=== PATIENT | male | born 1995 | race Two or more races ===

== ENCOUNTER 2017-02-27 16:32 | Emergency (ER) | payer SELFPAY ==
[~2017-02-27] VITALS: Ht 180.3 cm; Wt 10.8 kg
[2017-02-27 17:33] VITALS: BP 128/78
== END 2017-02-27 17:56 | disposition home or self-care (01) ==
LOC: ER 16:32
DX: S40.011A Contusion of right shoulder, initial encounter (principal); W22.8XXA Striking against or struck by other objects, initial encounter; Y93.89 Activity, other specified; Y99.8 Other external cause status; Y92.89 Other specified places as the place of occurrence of the external cause
CPT/HCPCS: 73030

== ENCOUNTER 2018-09-04 04:18 | Emergency (ER) | payer BC ==
[~2018-09-04] VITALS: Ht 182.9 cm; Wt 154.2 kg
[2018-09-04] MEDS ORDERED: cefTRIAXone SOD 1,000 MG VL IM ONE (07:15)
[2018-09-04] MEDS ORDERED: methylPREDNISolone SOD SUCC 125 MG/2 ML VL IM ONE (07:15)
[2018-09-04 07:22] VITALS: BP 147/90
== END 2018-09-04 07:56 | disposition home or self-care (01) ==
LOC: ER 04:18
DX: J03.90 Acute tonsillitis, unspecified (principal)
CPT/HCPCS: 96372; 99283; J0696; J2930

== ENCOUNTER 2023-09-12 10:30 | Emergency (ER) | payer BC, MEDICAID ==
[~2023-09-12] VITALS: Ht 177.8 cm; Wt 190.0 kg
[2023-09-12] MEDS: cloNIDine HCL 0.1 MG TAB PO ONE (10:56)
[2023-09-12 13:34] LABS: Basophils # (auto) 0 10 ^3/uL (0-0.2); Basophils % (auto) 0.6 % (0.0-2.0); Eosinophils # (auto) 0 10 ^3/uL (0-0.8); Eosinophils % (auto) 0.1 % (0.0-7.0); Hematocrit 46.7 % (41.0-53.0); Hemoglobin 16.2 g/dL (13.5-17.5); Lymphocytes # (auto) 1.9 10 ^3/uL (0.4-5.4); Lymphocytes % (auto) 33.9 % (10.0-50.0); Mean Corpuscular Hemoglobin 31.7 pg (28.0-32.0); Mean Corpuscular Hgb Conc. 34.8 g/dL (32.0-36.0); Mean Corpuscular Volume 91.2 fL (80.0-100.0); Monocytes # (auto) 0.5 10 ^3/uL (0-1.3); Monocytes % (auto) 8.4 % (0.0-12.0); Neutrophils # (auto) 3.2 10 ^3/uL (1.6-8.6); Nucleated Red Blood Cells % 0.1 %; Red Blood Cells 5.12 10^6/uL (4.5-5.90); Red Cell Distribution Width 12.9 % (11.8-14.3); White Blood Cell 5.5 10^3/uL (4.4-10.8)
[2023-09-12 13:54] LABS: Alanine Aminotransferase 278 U/L (7-40); Albumin 4.6 g/dL (3.2-4.8); Alkaline Phosphatase 116 U/L (46-116); Anion Gap 5 (5-15); Aspartate Aminotransferase 114 U/L (13-40); Bilirubin, Total 0.6 mg/dL (0.2-1.0); Calcium 9.4 mg/dL (8.5-10.1); Carbon Dioxide 24 mmol/L (20-30); Chloride 111 mmol/L (98-107); Glucose 133 mg/dL (74-106); Potassium 3.9 mmol/L (3.5-5.1); Sodium 140 mmol/L (136-145); Total Protein 7.4 g/dL (5.7-8.2)
[2023-09-12 13:59] LABS: BUN/Creatinine Ratio 9.3 (10.0-20.0); Blood Urea Nitrogen < 5 mg/dL (9-23)
[2023-09-12] MEDS ORDERED: ACET500T58 PO (14:13)
[2023-09-12 14:38] VITALS: BP 156/87; PULSE 89; RESP 17; TEMP 98.9; O2SAT 97
== END 2023-09-12 14:40 | disposition home or self-care (01) ==
LOC: ER 10:30
DX: M94.0 Chondrocostal junction syndrome [Tietze] (principal); E11.9 Type 2 diabetes mellitus without complications; F32.9 Major depressive disorder, single episode, unspecified; E78.5 Hyperlipidemia, unspecified
CPT/HCPCS: 36415; 71046; 80053; 83880; 84484; 85025; 85379; 93005

== ENCOUNTER 2023-10-31 18:08 | Emergency (ER) | payer MEDICAID ==
[~2023-10-31] VITALS: Ht 180.3 cm; Wt 186.0 kg
[~2023-10-31 18:08] MED LIST: ACET500T58 PO
[2023-10-31 18:57] VITALS: PULSE 101; RESP 20; O2SAT 96
[2023-10-31 19:30] VITALS: PULSE 58; RESP 20; O2SAT 98
[2023-10-31 20:00] VITALS: TEMP 98.5
[2023-10-31] MEDS: TETANUS-DIPTH-ACEL PERTUSSIS 0.5ML SYR Tdap IM ONE (20:54)
[2023-10-31] MEDS ORDERED: LIDOCAINE 1% HCL (LOCAL ANESTH.) INJ 20ML MDV ID ONE (21:45)
[2023-10-31] MEDS ORDERED: IBU600T PO (22:18)
[2023-10-31 23:58] VITALS: BP 116/62; PULSE 92; RESP 15; O2SAT 96
== END 2023-11-01 | disposition home or self-care (01) ==
LOC: ER 18:08 → EDBD 18:08 → ER 11-01
DX: S01.112A Laceration without foreign body of left eyelid and periocular area, initial encounter (principal); M54.9 Dorsalgia, unspecified; R51.9 Headache, unspecified; E11.9 Type 2 diabetes mellitus without complications; E78.5 Hyperlipidemia, unspecified; F32.9 Major depressive disorder, single episode, unspecified; Z79.899 Other long term (current) drug therapy; Y04.2XXA Assault by strike against or bumped into by another person, initial encounter; Y93.89 Activity, other specified; Y92.89 Other specified places as the place of occurrence of the external cause; Y99.8 Other external cause status
CPT/HCPCS: 12014; 70450; 70486; 72125; 90471; 90715; 99152; J2001

== ENCOUNTER 2025-02-01 00:48 | Inpatient (IN) | payer MEDICAID ==
[~2025-02-01] VITALS: Ht 177.8 cm; Wt 181.6 kg
[~2025-02-01 00:48] MED LIST changes: +IBU600T PO
--- NOTE | 2025-02-01 01:24 | ED.PDOC ---
HPI (NEURO) HPI Comments SOFIA: HPI: Poor Historian. 29-YEAR-OLD MALE PRESENTS TO EMERGENCY DEPARTMENT FOR EVALUATION OF TWO WEEK HISTORY OF PROGRESSIVELY GETTING WORSE bilateral lower extremity numbness tingling sensation. He describes it as feeling that he is wearing socks/stockings. No motor deficits or weakness. He is ambulatory in the ER. He drove himself to the ER. Denies any saddle anesthesia. Denies any acute back pain. Denies any fall or trauma or injury. Denies respiratory symptoms. Denies any other acute symptoms. Patient has chronic diarrhea he says that is not new due to use of Ozempic. Contrary to what is stated in triage notes, patient denies any urinary incontinence but he has urgency. Denies any bowel rectal dysfunction. Past Medical History: Diabetes, hypertension, dyslipidemia, anxiety Past Surgical History: Denies REVIEW OF SYSTEMS: CONSTITUTIONAL: Denies acute: fever, diaphoresis, chills, generalized weakness. HEAD: Denies acute: headache, photophobia Eyes: Denies acute: Double vision, vision loss, eye pain, eye discharge. EARS: Denies acute: tinnitus, hearing loss, ear discharge, ear pain, THROAT: Denies acute: sore throat, swelling, difficulty swallowing , pain with s wallowing, change in voice. NECK: Denies acute: neck pain, neck swelling, stiff neck. HEART: Denies acute : chest pain, palpitations, LUNGS: Denies acute: SOB, wheezing, cough, hemoptysis ABDOMEN: Denies acute: abdominal pain, Nausea, Vomiting, diarrhea, melena , hematemesis, hematochezia SKIN: Denies acute: rash, redness, lesions, itchiness. EXTREMITIES: Denies acute: calf pain, weakness, denies pain in extremity. Denies acute: Low back pain. Neuro: Denies acute: focal neurological deficit, motor or sensory focal neurological deficit, tremors, seizure like activity, confusion, dizziness, change in mental status, loss of bowel or bladder function, cauda equina like symptoms. : Denies acute: dysuria, hematuria, flank pain, increase in urinary frequency. PSYCH: Denies acute: hallucination, suicidal ideation, homicidal ideation. PHYSICAL EXAM: General: -----NO--acute distress, awake and alert. Head: normocephalic, atraumatic. No raccoon's eyes, no cassidy sign. Neck: supple, trachea is midline, no swelling. Throat: Normal phonation. Eyes:, no erythema, no purulent discharge, no proptosis, no icterus. Heart: regular rate, regular rhythm, no significant murmur appreciated. Lungs: no apparent respiratory distress, Able to speak in full sentences. No wheezing, no rhonchi, no crackles. No stridors Clear to auscultation bilaterally. Abdomen: non tender to palpation, non distended, soft, no guarding, no rebound, + bowel sounds. MORBIDLY OBESE Neuro: Awake, Alert, oriented to name, self, situation, follows commands GCS=15. Speech is normal. Skin: no petechia, no purpura, no cyanosis, non-pale, not jaundice. Lower extremities: --no - Pitting edema no deformity, no focal swelling, no calf TTP. ABLE TO RAISE BILATERAL LOWER EXTREMITY AGAINST GRAVITY AND HOLD IT. Makes eye contact. moves all four extremities. Face: no apparent facial droop. Ambulating in the ED independently. ED COURSE: DISCLAIMER: This medical document was created using an electronic medical record system with voice recognition software and computerized dictation system. Although this document has been carefully reviewed, there might still be some phonetic and typographical errors. Occasional wrong-word or "sound-alike" substitutions may have occurred due to the inherent limitations of voice recognition software. These areas are purely typographical due to imperfections of the software programs and do not reflect any compromise in the patient's medical care. Please read the chart carefully and recognize, using context, where these substitutions have occurred. Chief Complaint: General Weakness Time Seen by MD: 01:24 Primary Care Provider: JOANNA Reviewed Notes: Nurses Notes, Allergies Information Source: Patient Mode of Arrival: Ambulatory Past Medical History PAST MEDICAL HISTORY: Depression, DM, High Lipids Surgical History: Denies all surgeries Family History Family History: Unknown Social History Smoker: Non-Smoker Alcohol: Occasionally Drugs: Denies Drug Use Lives In: Home Was a procedure done? Was a procedure done?: No Differential Diagnosis (SZ) Seizure: N/A CVA: CVA, DKA, Drug Overdose, Electrolyte Imbalance, Encephalopathy, Hypoglycemia, Hypoxemia, Mass Lesion, Other (DDX include CVA, intracranial bleed/ischemia/infarct/infection/mass, carotid stenosis, vertebral/carotid artery dissection, radiculopathy, vertebrobasillary insufficiency, BPV, encephalopathy, temporal arteritis, electrolyte abnormality, thyroid disease, pseudotumor cerebri, hydrocephalus, Franklin palsy, multiple sclerosis, hypoglycemia, drug toxicity, cardiac arrhythmia. cauda equina syndrome, transverse myelitis. Guillain [place]) X-Ray, Labs, Meds, VS Vital Signs Date Time Temp Pulse Resp B/P (MAP) Pulse Ox O2 Delivery O2 Flow Rate FiO2 02/01/25 02:51 80 18 97 Room Air* 0 21 02/01/25 02:43 98.0 80 18 141/78 (99) 97 98.0 02/01/25 00:55 98.3 89 18 127/90 98 98.3 Lab Test 02/01/25 01:40 Range/Units White Blood Count 7.0 4.4-10.8 10^3/uL Red Blood Count 5.20 4.5-5.90 10^6/uL Hemoglobin 15.8 13.5-17.5 g/dL Hematocrit 45.7 41.0-53.0 % Mean Corpuscular Volume 87.8 80.0-100.0 fL Mean Corpuscular Hemoglobin 30.3 28.0-32.0 pg Mean Corpuscular Hemoglobin Concent 34.5 32.0-36.0 g/dL Red Cell Distribution Width 12.7 11.8-14.3 % Platelet Count 209 140-450 10^3/uL Mean Platelet Volume 9.7 6.9-10.8 fL Neutrophils (%) (Auto) 55.5 37.0-80.0 % Lymphocytes (%) (Auto) 35.0 10.0-50.0 % Monocytes (%) (Auto) 8.7 0.0-12.0 % Eosinophils (%) (Auto) 0.1 0.0-7.0 % Basophils (%) (Auto) 0.7 0.0-2.0 % Neutrophils # (Auto) 5.3 1.6-8.6 10 ^3/uL Lymphocytes # (Auto) 3.4 0.4-5.4 10 ^3/uL Monocytes # (Auto) 0.8 0-1.3 10 ^3/uL Eosinophils # (Auto) 0 0-0.8 10 ^3/uL Basophils # (Auto) 0.1 0-0.2 10 ^3/uL Nucleated Red Blood Cells 0.2 % Prothrombin Time 10.7 9.3-11.8 sec Prothrombin Time INR 1.01 0.9-1.15 Activated Partial Thromboplast Time 30.3 24.5-34.5 SEC Sodium Level 142 136-145 mmol/L Potassium Level 3.9 3.5-5.1 mmol/L Chloride Level 107 98-107 mmol/L Carbon Dioxide Level 26 20-31 mmol/L Anion Gap 9 5-15 Blood Urea Nitrogen 9 9-23 mg/dL Creatinine 0.67 L 0.700-1.30 mg/dL Glomerular Filtration Rate Calc 131 >90 mL/min BUN/Creatinine Ratio 13.4 10.0-20.0 Serum Glucose 82 74-106 mg/dL Calcium Level 9.4 8.7-10.4 mg/dL Magnesium Level 2.1 1.6-2.6 mg/dL Total Bilirubin 0.6 0.2-1.0 mg/dL Direct Bilirubin 0.2 <0.3 mg/dL Aspartate Amino Transferase (AST) 42 H 13-40 U/L Alanine Aminotransferase (ALT) 44 H 7-40 U/L Alkaline Phosphatase 66 46-116 U/L Creatine Kinase Pending C-Reactive Protein High Sensitivity 0.36 <1.0 mg/dL Total Protein 7.8 5.7-8.2 g/dL Albumin 4.6 3.2-4.8 g/dL Vitamin B12 Level 334 211-911 pg/mL Thyroid Stimulating Hormone (TSH) Pending Current Medications Medications (Trade) Dose Ordered Sig/Jennifer Route Start Time Stop Time Status Last Admin Sodium Chloride 1,000 ml @ 1,000 mls/hr Q1H ONCE IV 02/01/25 02:45 02/01/25 03:44 DC 02/01/25 02:[address] [address] Ph: [phone] DIAGNOSTIC IMAGING Diagnostic Imaging Report : [id number] Signed PATIENT: VANITA SOFIA ACCT: [id number] UNIT: [id number] : 1995 LOC: OVERFLOW ROOM / BED: [id number] / A AGE / SEX: 29 / M ADM STATUS: ADM IN SERVICE 3 ORDERING PHYSICIAN: CARLTON HALE PROCEDURE(s): CXR1 - CHEST XRAY 1 VIEW REASON: chest pain ORDER NUMBER(s): [id number], ACCESSION NUMBER(s): [id number] CHEST RADIOGRAPH Indication: chest pain Technique: Single frontal view of the chest was obtained COMPARISON: XY CHEST TWO VIEWS ROUTINE on DOS: 09/12/23 FINDINGS: Lines and Tubes: None Lungs: Clear Pleura: No effusion. No pneumothorax. Cardiomediastinal contours: Unremarkable Bones: Unremarkable IMPRESSION: 1. No acute disease. ATED BY: CHIRAG LOPEZ MD DICTATED DATE/TIME: 02/01/25432 SIGNED BY: CHIRAG LOPEZ MD SIGNED DATE/TIME: 02/01/25432 CC: Time of 1ST Reevaluation: 01:24 Reevaluation 1ST: Unchanged Patient Education/Counseling: Diagnosis, Treatment Family Education/Counseling: No Family Present Comments MDM: patient presented with the above HPI.----bilateral leg numbness--workup was initiated. patient was found with the above mentioned diagnosis. the following medications were ordered: please refer to order lists of meds and tests obtained by myself Dr. Ramirez. Patient ED course and VS have been stabilized. Patient has been reassessed in the ED and remained in a stable condition. Pertinent incidental findings were discussed with the patient and/or family. Patient/family voices understanding and is agreeable with plan. Patient has been observed in the ED adequate length of time to insure improvement/stability. Escalation of care considered: Consideration of escalation to observation or admission Patient was ADMITTED to the medicine team for further evaluation and treatment of their presentation. All the reports of any imaging studies that were ordered by myself were reviewed by myself. Departure 1 Departure Time of Disposition: 02:32 Impression: Primary Impression: Bilateral leg numbness Additional Impression: Rhabdomyolysis Disposition: ADMITTED INPATIENT Admit to: [facility] Condition: Guarded Discharged With: Self Critical Care Note Critical Care Time?: Yes (35 min-critical care time only) I personally scribed for ALFONSO RAMIREZ DO ([facility]) on 02/01/25 at 01:24. Electronically submitted by Jg Lara ([facility]). I personally scribed for ALFONSO RAMIREZ DO ([facility]) on 02/01/25 at 01:30. Electronically submitted by Jg Lara ([facility]). ALFONSO RAMIREZ DO Feb 01, 2025 01:24
[2025-02-01 02:11] LABS: Hematocrit 45.7 % (41.0-53.0); Hemoglobin 15.8 g/dL (13.5-17.5); Mean Corpuscular Hemoglobin 30.3 pg (28.0-32.0); Mean Corpuscular Volume 87.8 fL (80.0-100.0); Nucleated Red Blood Cells % 0.2 %
[2025-02-01 02:20] LABS: Albumin 4.7 g/dL (3.2-4.8); Alkaline Phosphatase 65 U/L (46-116); Anion Gap 9 (5-15); BUN/Creatinine Ratio 13.4 (10.0-20.0); Bilirubin, Total 0.6 mg/dL (0.2-1.0); Calcium 9.4 mg/dL (8.7-10.4); Carbon Dioxide 26 mmol/L (20-31); Glucose 82 mg/dL (74-106); Magnesium 2.1 mg/dL (1.6-2.6); Potassium 3.9 mmol/L (3.5-5.1); Sodium 142 mmol/L (136-145); Total Protein 7.7 g/dL (5.7-8.2)
[2025-02-01 02:26] LABS: Alanine Aminotransferase 42 U/L (7-40); Blood Urea Nitrogen 9 mg/dL (9-23); Chloride 107 mmol/L (98-107); Creatine Kinase IFCC 501 U/L (46-171)
[2025-02-01] MEDS: SODIUM CHLORIDE 0.9% 1,000 ML IV ONE ×2 (02:45→03:57)
[2025-02-01 02:51] VITALS: PULSE 80; RESP 18; O2SAT 97
--- NOTE | 2025-02-01 03:45 | DVHHPRES ---
History of Present Illness Resident Creating Document: CARLTON HALE History of Present Illness Patient is a 29-year-old male with past medical history of prediabetes, HTN, HLD and anxiety, presented to [facility] ED with complaint of progressively worsening bilateral lower extremity numbness and tingling over the past two weeks. He describes the sensation as feeling like he is "wearing leggings", extending from the hips down to the toes. He denies any motor deficits or weakness and remains ambulatory in the ED. 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 He also notes inadequate fluid intake recently. He has a known history of chronic diarrhea, which he attributes to Ozempic use for 6 months. The patient denies saddle anesthesia, acute back pain, recent falls, trauma, or injury. He also denies any respiratory symptoms or other acute complaints. On evaluation in the ED, patient is afebrile, vitals are stable. Initial labs show significant CK 501 and ALT 42. The patient was started on IV fluids. Patient is admitted for further evaluation and management. Past Medical History prediabetes, HTN, HLD, anxiety Past Surgical History: None Family History: None Smoke: No ALCOHOL: none Drugs: None Review of Systems Review of Systems Eyes: No Pain, No Vision change, No Conjunctivae inflammation, No Eyelid inflammation, No Other, No Redness ENT: No Ear pain, No Ear discharge, No Nose pain, No Nose discharge, No Nose congestion, No Mouth pain, No Mouth swelling, No Throat pain, No Throat swelling, No Other Cardiovascular: No Chest Pain, No Palpitations, No Orthopnea, No Paroxysmal No Dyspnea, No Edema, No Lt Headedness, No Other Respiratory: No Cough, No Dry, No Shortness of breath, No SOB with exertion, No Wheezing, No Hemoptysis, No Pleuritic Pain, No Sputum, No Other Gastrointestinal: No Nausea, No Vomiting, No Abdominal Pain, Diarrhea, No Constipation, No Melena, No Hematochezia, No Other Genitourinary: No Dysuria, No Frequency, No Incontinence, No Hematuria, No Retention, No Other Musculoskeletal: No other, No neck pain, No shoulder pain, No arm pain, No back pain, No hand pain, No leg pain, No foot pain Skin: No Rash, No Lesions, No Jaundice, No Bruising, No Other Allergies: Coded Allergies: NO KNOWN ALLERGIES (Unverified , 02/27/17) Exam Vital Signs Vital Signs Date Time Temp Pulse Resp B/P (MAP) Pulse Ox O2 Delivery O2 Flow Rate FiO2 02/01/25 02:51 80 18 97 Room Air* 0 21 02/01/25 02:43 98.0 141/78 (99) 98.0 Exam General Appearance: Cooperative. Well developed. Well nourished. NAD Head Exam: Normal inspection Neck Exam: Normal inspection. Non-tender. Normal alignment Pulmonary/Respiratory: Chest non-tender. Clear bilateral breath sounds, no crackles, no wheezing. Cardiovascular/Chest: Regular rate and rhythm. No murmurs. No JVD. Peripheral Pulses: 2+ Radial (R). 2+ Radial (L). 2+ Pedal (R). 2+ Pedal (L) Abdominal Exam: Normal bowel sounds. Soft. normal abdomen, no visible veins, Nontender. No hepatospenomegaly. No masses Ankle Exam: Negative ankle edema Lower extremities: Decreased sensation to light touch and pinprick noted bilaterally in the lower extremities from hips to toes Neuro/Mental Status: A&O x4. Coherent. Thoughts/Psych: Normal thought pattern. Appropriate mood and affect. Good judgement and insight Skin Exam: Normal inspection. Normal color. Warm. Dry Labs/Xrays Labs Test 02/01/25 03:22 02/01/25 01:40 Range/Units White Blood Count 7.0 4.4-10.8 10^3/uL Red Blood Count 5.20 4.5-5.90 10^6/uL Hemoglobin 15.8 13.5-17.5 g/dL Hematocrit 45.7 41.0-53.0 % Mean Corpuscular Volume 87.8 80.0-100.0 fL Mean Corpuscular Hemoglobin 30.3 28.0-32.0 pg Mean Corpuscular Hemoglobin Concent 34.5 32.0-36.0 g/dL Red Cell Distribution Width 12.7 11.8-14.3 % Platelet Count 209 140-450 10^3/uL Mean Platelet Volume 9.7 6.9-10.8 fL Neutrophils (%) (Auto) 55.5 37.0-80.0 % Lymphocytes (%) (Auto) 35.0 10.0-50.0 % Monocytes (%) (Auto) 8.7 0.0-12.0 % Eosinophils (%) (Auto) 0.1 0.0-7.0 % Basophils (%) (Auto) 0.7 0.0-2.0 % Neutrophils # (Auto) 5.3 1.6-8.6 10 ^3/uL Lymphocytes # (Auto) 3.4 0.4-5.4 10 ^3/uL Monocytes # (Auto) 0.8 0-1.3 10 ^3/uL Eosinophils # (Auto) 0 0-0.8 10 ^3/uL Basophils # (Auto) 0.1 0-0.2 10 ^3/uL Nucleated Red Blood Cells 0.2 % Sodium Level 142 136-145 mmol/L Potassium Level 3.9 3.5-5.1 mmol/L Chloride Level 107 98-107 mmol/L Carbon Dioxide Level 26 20-31 mmol/L Anion Gap 9 5-15 Blood Urea Nitrogen 9 9-23 mg/dL Creatinine 0.67 L 0.700-1.30 mg/dL Glomerular Filtration Rate Calc 131 >90 mL/min BUN/Creatinine Ratio 13.4 10.0-20.0 Serum Glucose 82 74-106 mg/dL Calcium Level 9.4 8.7-10.4 mg/dL Magnesium Level 2.1 1.6-2.6 mg/dL Total Bilirubin 0.6 0.2-1.0 mg/dL Aspartate Amino Transferase (AST) 38 13-40 U/L Alanine Aminotransferase (ALT) 42 H 7-40 U/L Alkaline Phosphatase 65 46-116 U/L Creatine Kinase 501 H 46-171 U/L C-Reactive Protein High Sensitivity 0.36 <1.0 mg/dL Total Protein 7.7 5.7-8.2 g/dL Albumin 4.7 3.2-4.8 g/dL SEPSIS Sepsis Screen Date sepsis recognized/suspect: Feb 01, 2025 Time Sepsis recognized/suspect: 252 Recent Procedure: No On Antibiotic Therapy: No Respiratory Rate >20: No Heart Rate >90: No Temp<36 C (96.8 F) or >38.3 C: No SBP <90 or MAP <65 mmHG: No New Acute Mental Status Change: No Is the patient on CPAP, BIPAP,: No Physician Orders Content Curator (02/01/25 ) Sodium Chloride 0.9% (02/01/25 02:45) Urinalysis (02/01/25 02:33) Admit (02/01/25 03:14) Allergies (02/01/25 03:14) Code Status (02/01/25 03:14) Complete Blood Count (02/01/25 04:00) Comprehensive Metabolic Panel (02/01/25 04:00) Cardiac Diet-2gna,Lofat,Lochol (02/01/25 Breakfast) Condition: Stable (02/01/25 03:14) Stat Ekg For Chest Pain (02/01/25 03:14) Notify Md Of Changes From Base (02/01/25 03:14) Hepatic Panel (02/01/25 03:14) Drug Screen (02/01/25 03:14) Erythrocyte Sedimentation Rate (02/01/25 03:14) Bilat Lower Dvt (02/01/25 03:14) Creatine Kinase (02/01/25 04:00) Sodium Chloride 0.9% (02/01/25 03:15) PTPTT (02/01/25 03:14) Electrocardiogram With Magnet (02/01/25 03:14) LIVER (02/01/25 03:14) Vitamin B12 (02/01/25 03:14) Thyroid Stimulating Hormone (02/01/25 03:14) Strict I & O QSHIFT (02/01/25 03:14) Chest Xray 1 View (02/01/25 03:14) Vital Signs Date Time Temp Pulse Resp B/P (MAP) Pulse Ox O2 Delivery O2 Flow Rate FiO2 02/01/25 02:51 80 18 97 Room Air* 0 21 02/01/25 02:43 98.0 80 18 141/78 (99) 97 98.0 02/01/25 00:55 98.3 89 18 127/90 98 98.3 Laboratory Tests Test 02/01/25 01:40 White Blood Count 7.0 10^3/uL (4.4-10.8) Medications Medications Dose Ordered Sig/Jennifer Route Start Time Stop Time Status Last Admin Dose Admin Sodium Chloride 1,000 ml @ 1,000 mls/hr Q1H ONCE IV 02/01/25 02:45 02/01/25 03:44 02/01/25 02:45 1,000 MLS/HR Assessment/Plan Assessment/Plan Rhabdomyolysis, likely exertional CK 501 > 515 IV NS 150 MLS/HR one UA and UDS ESR and CRP Hepatic panel PT/PTT TSH B12 CXR Bilateral Lower doppler Liver US Transaminitis ALT 44, AST 42 monitor Morbid obesity, BMI 55.4 kg/m2 on Ozempic I have counseled the patient on healthy lifestyle modifications Diet: Cardiac Goals of care: Full code, discussed for >30 minutes on 02/01/25 Plan discussed with patient Plan discussed with Dr. Holliday Plan discussed with: Patient My Orders Orders - CARLTON HALE RESIDENT Procedure Category Date Status Time Admit ADMIT 02/01/25 Transmitted 03:14 Allergies KATHIA 02/01/25 In Process 03:14 Code Status CODE 02/01/25 Transmitted 03:14 Complete Blood Count LAB 02/01/25 Logged 04:00 Comprehensive LAB 02/01/25 Logged Metabolic Panel 04:00 Cardiac DIET 02/01/25 Transmitted Diet-2gna,Lofat,Lochol Breakfast Condition: Stable KATHIA 02/01/25 In Process 03:14 Stat Ekg For Chest KATHIA 02/01/25 In Process Pain 03:14 Notify Md Of Changes KATHIA 02/01/25 In Process From Base 03:14 Hepatic Panel LAB 02/01/25 Logged 03:14 Drug Screen LAB 02/01/25 Logged 03:14 Erythrocyte LAB 02/01/25 Logged Sedimentation Rate 03:14 Bilat Lower Dvt US 02/01/25 Logged 03:14 Creatine Kinase LAB 02/01/25 Logged 04:00 Sodium Chloride 0.9% PHA 02/01/25 Logged 03:15 PTPTT LAB 02/01/25 Logged 03:14 Electrocardiogram EKG 02/01/25 Logged With Magnet 03:14 LIVER US 02/01/25 Logged 03:14 Vitamin B12 LAB 02/01/25 Logged 03:14 Thyroid Stimulating LAB 02/01/25 Logged Hormone 03:14 Strict I & O KATHIA 02/01/25 In Process 03:14 Chest Xray 1 View XY 02/01/25 Logged 03:14 Date of Service: Feb 01, 2025 Billing Provider: CHELE HOLLIDAY MD Common Visit Codes: [id number] INP/OBS CARE (HIGH) Secondary Visit Codes: [id number] CARE PLAN 30 MINUTES CARLTON HALE RESIDENT Feb 01, 2025 03:45
[2025-02-01 03:58] LABS: Urine Protein, UAD Negative (Negative)
[2025-02-01 04:07] LABS: INR 1.01 (0.9-1.15); Partial Thromboplastin Time 30.3 SEC (24.5-34.5); Prothrombin Time 10.7 sec (9.3-11.8)
[2025-02-01 04:08] LABS: Albumin 4.6 g/dL (3.2-4.8); Alkaline Phosphatase 66.0 U/L (46-116); Bilirubin, Direct 0.2 mg/dL (<0.3); Bilirubin, Total 0.6 mg/dL (0.2-1.0); Total Protein 7.8 g/dL (5.7-8.2)
[2025-02-01 04:10] LABS: Alanine Aminotransferase 44.0 U/L (7-40)
--- NOTE | 2025-02-01 04:35 | DVH ---
CHEST RADIOGRAPH Indication: chest pain Technique: Single frontal view of the chest was obtained COMPARISON: XY CHEST TWO VIEWS ROUTINE on DOS: 09/12/23 FINDINGS: Lines and Tubes: None Lungs: Clear Pleura: No effusion. No pneumothorax. Cardiomediastinal contours: Unremarkable Bones: Unremarkable IMPRESSION: 1. No acute disease.
--- NOTE | 2025-02-01 07:18 | DVH ---
INDICATION: transaminitis TECHNIQUE: Multiple real-time sonographic images of the abdomen were obtained. COMPARISON: None. FINDINGS: The liver is increased in echogenicity. The liver measures 21.4 cm. No intrahepatic biliary ductal dilatation is noted. The gallbladder wall measures 0.2 cm and is unremarkable. No gallstones or sludge is seen. The common duct is not visualized. No pericholecystic fluid is noted. Negative sonographic Gutierrez's sign. The right kidney measures 13.4 cm. No hydronephrosis. The pancreas is not well visualized due to obscuration from bowel gas. The visualized portions of the IVC and aorta are grossly unremarkable. IMPRESSION: No gallstones or acute cholecystitis. Hepatic steatosis and hepatomegaly.
[2025-02-01 07:20] LABS: Hematocrit 43.4 % (41.0-53.0); Hemoglobin 15.0 g/dL (13.5-17.5); Mean Corpuscular Hemoglobin 30.4 pg (28.0-32.0); Mean Corpuscular Volume 88.3 fL (80.0-100.0); Nucleated Red Blood Cells % 0.1 %
--- NOTE | 2025-02-01 07:26 | DVH ---
Bilateral lower extremity venous duplex Clinical History: Bilateral leg numbness Comparison: None. Findings: Duplex Doppler evaluation of the deep venous systems of both lower extremities from the common femoral veins to the popliteal veins including color Doppler and spectral/pulsed waveform analysis was performed. RIGHT SIDE: The common femoral vein demonstrates appropriate compressibility and waveform variability. There is compressibility/patency of the great saphenous vein at the proximal thigh. The femoral vein demonstrates appropriate compressibility and waveform variability. The deep femoral vein demonstrates appropriate compressibility and waveform variability. The popliteal vein demonstrates appropriate compressibility and waveform variability. LEFT SIDE: The common femoral vein demonstrates appropriate compressibility and waveform variability. There is compressibility/patency of the great saphenous vein at the proximal thigh. The femoral vein demonstrates appropriate compressibility and waveform variability. The deep femoral vein demonstrates appropriate compressibility and waveform variability. The popliteal vein demonstrates appropriate compressibility and waveform variability. Impression: 1. No right or left femoropopliteal venous thrombosis.
[2025-02-01 07:38] LABS: Amphetamine Screen, Urine Neg (NEGATIVE)
[2025-02-01 07:39] LABS: Barbiturate Scree,Urine Neg (NEGATIVE); Benzodiazephine Screen, Urine Neg (NEGATIVE); Cannabinoid Screen, Urine Neg (NEGATIVE); Cocaine Screen, Urine Neg (NEGATIVE); Opiate Scree,Urine Neg (NEGATIVE); Phencyclidine Screen, Urine Neg (NEGATIVE)
[2025-02-01 07:40] LABS: Alanine Aminotransferase 38 U/L (7-40); Albumin 4.4 g/dL (3.2-4.8); Alkaline Phosphatase 60 U/L (46-116); Anion Gap 11 (5-15); BUN/Creatinine Ratio 12.7 (10.0-20.0); Calcium 8.9 mg/dL (8.7-10.4); Carbon Dioxide 24 mmol/L (20-31); Potassium 3.8 mmol/L (3.5-5.1); Sodium 143 mmol/L (136-145); Total Protein 7.3 g/dL (5.7-8.2)
[2025-02-01 07:41] LABS: Bilirubin, Total 0.8 mg/dL (0.2-1.0)
[2025-02-01 07:53] LABS: Blood Urea Nitrogen 8 mg/dL (9-23); Chloride 108 mmol/L (98-107); Glucose 74 mg/dL (74-106)
[2025-02-01 08:07] VITALS: PULSE 77; RESP 17; O2SAT 97
--- NOTE | 2025-02-01 14:51 | DVHINCON2 ---
Date of service: Feb 01, [address] Newby Reason for Consultation Leg weakness, numbness History of Present Illness Mr. Issa is a 29 years old right-handed gentleman with a history of hypertension, diabetes, dyslipidemia, anxiety, obesity, he came to the [facility] on 02/01/2025 with a chief complaint of numbness weakness in the lower extremities, at this time, he is alert and fully oriented, he provided the following history Around 01/18/2025, he noticed weakness in knees, and then later he noticed the weakness spread to both thighs. Around 01/25/2025, he noticed numbness/diminished feeling in the legs and feet, and the problem progress to the whole bilateral lower extremity below the hips On 02/01/2025, when he is lying in the MRI machine, he had tingling in bilateral lower extremities Since 01/25/2025, he has urinary urgency He reports difficulty with walking around He has no muscle pain He denies vision change, dysphagia. He denies recent skin she rashes, chills, fever, coughing, nausea, vomiting for acute illness, he denies recently injury/trauma, surgery, vaccination He had diarrhea at home because of Ozempic treatment CBC, 02/01/2025: Okay ESR, 02/01/2025: 4 BMP 02/01/2025: Unremarkable TBI/AST/ALT/AP, 02/01/2025: 0.2/42/44/66 CPK, 02/01/2025: 501, 512, 443 Vitamin B12, 02/01/2025: 334 TSH, 02/22/2020 5:3.09 Ultrasound, 02/01/2025: No gallstones or acute cholecystitis. Hepatic steatosis and hepatomegaly Leg venous Doppler study, 02/01/2025: No right or left femoropopliteal venous thrombosis Chest x-ray, 02/01/2025: No acute disease Past Medical History Hypertension, diabetes, dyslipidemia, anxiety, obesity Past Surgical History None Family History Hypertension, diabetes Social History He was tobacco smoke, but no history of drug/alcohol abuse Allergies: Coded Allergies: NO KNOWN ALLERGIES (Unverified , 02/27/17) Home Meds Active Scripts Ibuprofen Micronized (MOTRIN TABLET) 600 Mg Tb, 800 MG PO TID PRN for 10 Days, #30 TAB *Black box warning-NSAIDS can increase risk of TN & hypertension, GI irritation, ulceration, bleed, perferation. Do not use post cardiac surgery. Use short duration/lowest effective dose. Prov:RAHUL GARZA MD 10/31/23 Acetaminophen (Acetaminophen) 500 Mg Tab, 500 MG PO QIDPRN PRN for 10 Days, #40 TAB Prov:JESUS JOY DO 09/12/23 Reported Medications Semaglutide (Ozempic) 2 Mg/3 Ml Inj, 2 MG SC, INJ 02/01/25 Atorvastatin Calcium (ATORVASTATIN CALCIUM) 10 Mg Tab, 1 TAB PO DAILY, #30 TAB 5 Refills 02/01/25 Review of Systems As above, the other systems are negative Vital Signs Vital Signs Date Time Temp Pulse Resp B/P (MAP) Pulse Ox O2 Delivery O2 Flow Rate FiO2 02/01/25 12:00 92 02/01/25 12:00 98.2 18 128/89 (102) 97 98.2 02/01/25 08:11 Room Air* 0 21 Physical Exam GENERAL EXAM: General: the patient is well developed and nourished. No acute distress. HEENT: Normocephalic, neck is supple, no carotid bruits. No mass. RESPIRATORY: Normal respiratory effort with symmetrical lung expansion. Lungs clear to auscultation. CARDIOVASCULAR: Regular rate and rhythm with no murmurs. S1, S2. ABDOMEN: Soft, nontender, normal bowel sound NEUROLOGICAL: MENTAL STATUS: Awake and alert. Oriented to person, place, time and general circumstances. Able to give personal history SPEECH, LANGUAGE, HIGHER CORTICAL FUNCTION: no aphasia or dysathria. CRANIAL NERVES: #2: Intact visual foster to confrontation. The optic discs were sharp. #3,4,6: Pupils are equal, round and reactive. EOMs full and conjugate. No nystagmus. #5: Facial sensation intact in all three divisions bilaterally. Mandibular strength intact. #7: Facial muscles symmetrical and strength intact. #8: Hearing grossly normal to voice. #9,10: Uvula and soft palate rise in the midline. Swallow and voice are normal. #11: Trapezius and sternomastoid strength intact bilaterally. #12: Tongue midline. No fasciculations or atrophy. SENSATION: Sensation to touch and pinprick is diminished below bilateral T10 dermatomes MOTOR: Normal tone in the upper and lower extremity. Normal muscle bulk. No fasciculations. No abnormal movements or posturing. Muscle strength of the major groups in the upper extremities is 5/5. Muscle strength of the major groups in the lower extremities is 4/5, weaker in the bilateral pelvic girdle muscles. REFLEXES: Deep tendon reflexes are symmetrical. No pathological reflexes. CEREBELLAR/COORDINATION: Finger to nose is normal bilaterally. GAIT/STATION: deferred. Labs/Diagnostic Data Labs Test 02/01/25 09:49 02/01/25 06:16 02/01/25 03:22 02/01/25 01:40 Range/Units Lactic Acid Level 1.2 0.4-2.0 mmol/L White Blood Count 7.6 4.4-10.8 10^3/uL Red Blood Count 4.91 4.5-5.90 10^6/uL Hemoglobin 15.0 13.5-17.5 g/dL Hematocrit 43.4 41.0-53.0 % Mean Corpuscular Volume 88.3 80.0-100.0 fL Mean Corpuscular Hemoglobin 30.4 28.0-32.0 pg Mean Corpuscular Hemoglobin Concent 34.5 32.0-36.0 g/dL Red Cell Distribution Width 12.6 11.8-14.3 % Platelet Count 239 140-450 10^3/uL Mean Platelet Volume 9.5 6.9-10.8 fL Neutrophils (%) (Auto) 52.7 37.0-80.0 % Lymphocytes (%) (Auto) 37.8 10.0-50.0 % Monocytes (%) (Auto) 9.0 0.0-12.0 % Eosinophils (%) (Auto) 0.1 0.0-7.0 % Basophils (%) (Auto) 0.4 0.0-2.0 % Neutrophils # (Auto) 4.0 1.6-8.6 10 ^3/uL Lymphocytes # (Auto) 2.9 0.4-5.4 10 ^3/uL Monocytes # (Auto) 0.7 0-1.3 10 ^3/uL Eosinophils # (Auto) 0 0-0.8 10 ^3/uL Basophils # (Auto) 0 0-0.2 10 ^3/uL Nucleated Red Blood Cells 0.1 % Erythrocyte Sedimentation Rate 4 0-20 mm/hr Sodium Level 143 136-145 mmol/L Potassium Level 3.8 3.5-5.1 mmol/L Chloride Level 108 H 98-107 mmol/L Carbon Dioxide Level 24 20-31 mmol/L Anion Gap 11 5-15 Blood Urea Nitrogen 8 L 9-23 mg/dL Creatinine 0.63 L 0.700-1.30 mg/dL Glomerular Filtration Rate Calc 134 >90 mL/min BUN/Creatinine Ratio 12.7 10.0-20.0 Serum Glucose 74 74-106 mg/dL Hemoglobin A1c 5.1 <5.7 % A1C Calcium Level 8.9 8.7-10.4 mg/dL Total Bilirubin 0.8 0.2-1.0 mg/dL Aspartate Amino Transferase (AST) 36 13-40 U/L Alanine Aminotransferase (ALT) 38 7-40 U/L Alkaline Phosphatase 60 46-116 U/L Creatine Kinase 443 H 46-171 U/L Total Protein 7.3 5.7-8.2 g/dL Albumin 4.4 3.2-4.8 g/dL Urine Color Yellow Yellow Urine Clarity Clear Clear Urine pH 6.5 5.0-9.0 Urine Specific [place] 1.026 1.001-1.035 Urine Protein Negative Negative Urine Ketones Negative Negative Urine Blood Negative Negative /uL Urine Nitrite Negative Negative Urine Bilirubin Negative Negative Urine Urobilinogen 2 H Negative mg/dL Urine Leukocyte Esterase Negative Negative /uL Urine RBC None seen 0 - 3 /hpf Urine Microscopic WBC < 1 0-3 /HPF Urine Squamous Epithelial Cells None seen <5 /hpf Urine Bacteria None seen None Seen /hpf Urine Mucus Few None Seen Urine Glucose Normal Normal mg/dL Urine Opiates Screen Neg NEGATIVE Urine Fentanyl Screen Neg NEGATIVE Urine Barbiturates Screen Neg NEGATIVE Urine Phencyclidine Screen Neg NEGATIVE Urine Amphetamines Screen Neg NEGATIVE Urine Benzodiazepines Screen Neg NEGATIVE Urine Cocaine Screen Neg NEGATIVE Urine Cannabinoids Screen Neg NEGATIVE Prothrombin Time 10.7 9.3-11.8 sec Prothrombin Time INR 1.01 0.9-1.15 Activated Partial Thromboplast Time 30.3 24.5-34.5 SEC Magnesium Level 2.1 1.6-2.6 mg/dL Direct Bilirubin 0.2 <0.3 mg/dL C-Reactive Protein High Sensitivity 0.36 <1.0 mg/dL Vitamin B12 Level 334 211-911 pg/mL Thyroid Stimulating Hormone (TSH) 3.09 0.55-4.78 uIU/mL Assessment Paresthesia and weakness in the lower extremities, etiology unclear Transverse myelitis Multiple sclerosis Polymyositis, less likely Plan/Recommendation Monitoring Supportive treatment MR head wwo, MRI T-spine with without, MRI C-spine with a without Up to chair Physical therapy More recommendation per clinical course Prognosis poor This medical document was created using an electronic medical record system with [employer] dictation system. Although this document has been carefully reviewed, there may still be some phonetic and typographical errors. These area s are purely typographical due to imperfections of the software programs, and do not reflect any compromise in the patient's medical care. Plan discussed with: Patient, Other MADDIE AUSTIN MD Feb 01, 2025 14:51
[2025-02-01] MEDS ORDERED: LORazepam 2MG/ML-1ML VIAL IV PRN (15:45)
--- NOTE | 2025-02-01 16:06 | DVH ---
PROCEDURE: MRI LUMBAR SPINE WO CONTRAST Indication: LE weakness + numbness COMPARISON: None TECHNIQUE: Multiplanar multisequence images of the the lumbar spine are obtained. FINDINGS: For the purpose of this examination, there are 5 lumbar vertebral body types counting from the lumbosacral junction. The lumbar vertebral body heights are maintained. Moderate multilevel disc space narrowing and desiccation. Diffusely decreased T1 signal within the marrow. No abnormal marrow edema. Conus terminates at the level of the L1 vertebral body level. T12-L1: Tiny disc protrusion. Mild facet and flavum hypertrophy. No spinal canal stenosis. [id number] bilateral neural foraminal stenosis. L1-2: Tiny disc protrusion. Rldb-fi-xwhpxzki facet and flavum hypertrophy. No spinal canal stenosis. Mild bilateral neural foraminal stenosis. L2-3: 3 mm disc protrusion. Moderate facet and flavum hypertrophy. Thecal sac measures 9 mm AP. Mild spinal canal stenosis. Eytn-ls-rdgwxbrx bilateral neural foraminal stenosis. L3-4: 3 mm disc protrusion. Moderate facet and flavum hypertrophy. Thecal sac measures 7 mm AP. Moderate spinal canal stenosis. Moderate bilateral neural foraminal stenosis. L4-5: Large central/ left paracentral disc protrusion extending 7 mm posteriorly. This compresses upon the descending left L5 nerve root. The thecal sac measures 5 mm at this level consistent with severe spinal canal stenosis. There is severe bilateral neural foraminal stenosis. L5-S1: 3 mm disc protrusion. Moderate facet and flavum hypertrophy. No spinal canal stenosis. Severe bilateral neural foraminal stenosis IMPRESSION: Moderate lumbar degenerative disc disease. There is a large central/left paracentral disc protrusion at L4-5 extending 7 mm posteriorly which compresses upon the descending left L5 nerve root and also results in severe spinal canal stenosis at this level. Severe neural foraminal stenosis at L4-5 and L5-S1. Moderate neural foraminal stenosis L3-4. Mjqx-ru-psscxfof neural foraminal stenosis at T12-L1, L1-2, L2-3. Diffusely decreased T1 signal within the marrow which can be secondary to anemia, myeloproliferative disorders, myelofibrosis, leukemia / lymphoma /malignancy. Correlate clinically
[2025-02-01 16:14] VITALS: PULSE 91; RESP 18; O2SAT 98
--- NOTE | 2025-02-01 16:23 | DVHPNRES ---
Progress Note Date Seen: Feb 01, 2025 Resident Creating Document: ANGLE ANDREWS RESIDENT Medical Necessity Reason Pt with a Central, PICC or Fol: No Subjective Review of Systems seen bedside, still has persistant b/l lower limb weakness. Objective vital signs Vital Sign Date Time Temp Pulse Resp B/P (MAP) Pulse Ox O2 Delivery O2 Flow Rate FiO2 02/01/25 16:00 98.3 77 18 121/66 (84) 97 98.3 02/01/25 08:11 Room Air* 0 21 medications Current Medications Medications Dose Ordered Sig/Jennifer Route Start Time Stop Time Status Last Admin Dose Admin Pantoprazole Sodium 40 mg DAILY IV 02/02/25 10:00 Enoxaparin Sodium 60 mg DAILY SC 02/02/25 10:00 Examination General Appearance: Alert, Oriented X3, Cooperative, No acute distress HEENT: Atraumatic, PERRLA, EOMI, Mucous membrane moist/pink Respiratory: Clear to auscultation, Normal air movement Cardiovascular: Regular rate, Normal S1, Normal S2, No murmurs, no chest wall tenderness Abdominal: Normal bowel sounds, Soft, No tenderness, No hepatospenomegaly, No masses Extremities: No clubbing, No cyanosis, No edema, Normal pulses, No tenderness/swelling Skin: No rashes, No breakdown, No significant lesion Neuro: 1/5 strength in bilateral lower limbs, no sensation in bilateral lower limbs Psych/Mental Status: Mental status NL, Mood NL laboratory and microbiology Laboratory Tests 02/01/25 06:16 Test 02/01/25 06:16 Range/Units Serum Glucose 74 74-106 mg/dL Labs and/or images reviewed: Labs reviewed by me, Image(s) reviewed by me Problem List/Assessment/Plan Problem List/Assessment/Plan Mr. Issa, A 29-year-old male with a history of diabetes mellitus, dyslipidemia, hypertension, anxiety, and obesity presents with bilateral lower limb weakness and numbness persisting for two weeks. 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 He has recently abstained from alcohol and feels dehydrated but denies fever, shortness of breath, or other systemic symptoms. His review of systems is largely unremarkable except for the noted neurological complaints. He is currently taking metformin, Ozempic, losartan, atenolol, atorvastatin, and citalopram, with no known allergies and no relevant surgical or family history. He denies smoking, alcohol, and illicit drug use. #Progressive b/l lower limb weakeness with paresthesia : Differentials include transverse myelitis, Guillain-Kneeland syndrome, central canal stenosis, spinal injury, autoimmune disease and subacute combined degeneration: Lumbar MRI, Neurology input, Lumbar puncture depending on Neurology, PT, fall precautions. #Likley Statin myopathy: elevated CK: On home at low-dose statin 10 trend Ck , IV fluid to continue, BMP daily, correct electrolytes, check lipid panel, check further need of statin. #elevated CK, likely exertional: Differentials include myositis, myopathy: Check UDS, highly likely due to the statin #mild Transaminitis, likely due to NAFLD: Trend liver functions, lifestyle modification, weight loss #Obesity grade 3+, BMI 55.4 kg/m2: on Ozempic, continue weight loss and weight management, lifestyle modifications continue # recurrent chronic diarrhea: Could be due to metformin use, can hold, rule out B12 and electrolyte disturbances. Given psychiatric history, irritable bowel syndrome is differential, diagnosis of exclusion. # history of Prediabetes, HbA1c 5.1, likely improve # history of Dyslipidemia: Follow lipid panels # history of Essential hypertension: Home antihypertensives reviewed lisinopril and atenolol, Continue antihypertensives as needed, Target blood pressure in- hospital below 140/90, salt restricted DASH/cardiac diet. # generalized anxiety disorder/major depressive disorder: Continue home medications, on citalopram 40 mg daily. # history of lower back injury due to RTA in past: Back pain needed physiotherapy previously. # known left-sided sciatica # CT and x-ray reveals premature spinal osteoarthritis likely due to weight # Moderate lumbar degenerative disc disease: Conservative management, physical therapy, pain management # GI prophylaxis with PPI # DVT prophylaxis with Lovenox Diet: Cardiac diet Code status: Full code, care discussion needed total 27 minutes. Plan discussed with patient. Disposition: DC/Tele Downgrade to med-surgery, hemodynamically stable, workup in progress, stays in hospital. Plan discussed with Dr. Beal Plan discussed with: Patient My Orders My Orders Orders - ANGLE ANDREWS RESIDENT Procedure Category Date Status Time Complete Blood Count LAB 02/02/25 Verified 04:00 Comprehensive LAB 02/02/25 Verified Metabolic Panel 04:00 Date of Service: Feb 01, 2025 Billing Provider: NAHEED BEAL MD Common Visit Codes: [id number] INP/OBS CARE(HIGH) ANLGE ANDREWS RESIDENT Feb 01, 2025 16:23 CARLOS NAM RESIDENT Feb 01, 2025 18:15 NAHEED BEAL MD Feb 02, 2025 17:37
[2025-02-01 16:42] VITALS: BP 124/91; PULSE 91; RESP 18; TEMP 98; O2SAT 98
[2025-02-01] MEDS ORDERED: ATOR10TA52 PO (16:46)
[2025-02-01] MEDS ORDERED: SEMA2INJ3 SC (16:46)
[2025-02-01] MEDS: PANTOPRAZOLE 40 MG/10 ML VIAL INJ IV ONE (17:40)
[2025-02-01 18:51] LABS: COVID19 ANTIGEN SOFIA FIA NEGATIVE (NEGATIVE)
[2025-02-01 20:00] VITALS: PULSE 86; RESP 18; O2SAT 98
[2025-02-01 21:00] VITALS: BP 126/83; PULSE 86; RESP 18; TEMP 98.3; O2SAT 98
[2025-02-01] MEDS: CITALOPRAM HYDROBR 20 MG TAB PO ONE (21:00)
[2025-02-02] VITALS (7 sets, daily range): BP systolic 106–126; BP diastolic 65–86; PULSE 77–112; RESP 16–19; TEMP 97–98.5; O2SAT 95–98
[2025-02-02 07:22] LABS: Hematocrit 42.8 % (41.0-53.0); Hemoglobin 15.0 g/dL (13.5-17.5); Mean Corpuscular Hemoglobin 30.6 pg (28.0-32.0); Mean Corpuscular Volume 87.7 fL (80.0-100.0); Nucleated Red Blood Cells % 0.1 %
[2025-02-02 07:41] LABS: Alanine Aminotransferase 40 U/L (7-40); Albumin 4.3 g/dL (3.2-4.8); Alkaline Phosphatase 56 U/L (46-116); Anion Gap 12 (5-15); BUN/Creatinine Ratio 13.3 (10.0-20.0); Bilirubin, Total 0.9 mg/dL (0.2-1.0); Calcium 9.2 mg/dL (8.7-10.4); Carbon Dioxide 24 mmol/L (20-31); Chloride 105 mmol/L (98-107); Glucose 79 mg/dL (74-106); Potassium 3.9 mmol/L (3.5-5.1); Sodium 141 mmol/L (136-145); Total Protein 7.2 g/dL (5.7-8.2)
[2025-02-02 07:42] LABS: Blood Urea Nitrogen 8 mg/dL (9-23)
[2025-02-02] MEDS: CITALOPRAM HYDROBR 20 MG TAB PO SCH (09:27)
[2025-02-02] MEDS: ENOXAPARIN SOD 60 MG/0.6 ML SYRINGE SC SCH (09:27)
[2025-02-02] MEDS: PANTOPRAZOLE 40 MG/10 ML VIAL INJ IV SCH (09:27)
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
[2025-02-02] MEDS: HYDROcodone-ACET 5/325MG TAB PO ONE (13:09)
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
--- NOTE | 2025-02-02 19:14 | DVH ---
EXAM: MRI BRAIN HEAD WO W CONTRAST HISTORY: MS TECHNIQUE: Multiplanar and multisequence MR imaging of the head was performed. This was done both before and after the administration of gadolinium contrast. COMPARISON: CT MAXILLOFACIAL WITHOUT on DOS: 10/31/23, CT HEAD WITHOUT CONTRAST on DOS: 10/31/23 FINDINGS: The ventricles and subarachnoid spaces are normal in size and configuration. Brain parenchyma is normal in signal. There is no midline shift or mass effect. There is no area of abnormal contrast enhancement. The vascular flow-voids are unremarkable. Diffusion weighted imaging is not indicative of acute or recent infarct. There are mucous retention cysts or polyps in the bilateral maxillary sinuses IMPRESSION: 1. No acute or recent infarct. 2. No enhancing intracranial lesion.
--- NOTE | 2025-02-02 20:20 | DVH ---
EXAM: MRI MRI NECK W CONTRAST (MR CERVICAL SPINE WITH AND WITHOUT CONTRAST) INDICATION: MS TECHNIQUE: Multiplanar, multisequence imaging of the cervical spine with and without contrast. COMPARISON: MRI BRAIN HEAD WO W CONTRAST on DOS: 02/02/25 FINDINGS: [ANATOMY]: Cervical lordosis is maintained. [BONES]: The vertebral bodies are normal in height, alignment, and marrow signal. [CERVICAL CORD]: The cervical cord is normal in signal and morphology. No abnormal enhancement [DISCS]: Diffuse disc desiccation. Prominent right lateral T1 and T2 uncovertebral spurring and/or disc extrusion extending into bilateral inferior foramina contributing to severe right T1-2, T2-T3 foraminal narrowing. T1-T2 right-sided disc extrusion measures 7 mm AP and 13 mm craniocaudal. T2-T3 right- sided disc extrusion to uncovertebral spur measures 7 mm AP and 10 mm craniocaudal. [FACETS]: Unremarkable [OTHER]: There is no prevertebral soft tissue swelling. The visualized paraspinal soft tissues are normal. [C2-C3]: Unremarkable. [C3-C4]: Unremarkable. [C4-C5]: Unremarkable. [C5-C6]: Unremarkable. [C6-C7]: Unremarkable. [C7-T1]: Unremarkable. IMPRESSION: 1. No significant MR abnormality of the cervical cord. No significant cervical disc herniation or spinal canal or foraminal narrowing. 2. Prominent right lateral T1 and T2 uncovertebral spurring and/or disc extrusion extending into bilateral inferior foramina contributing to severe right T1-2, T2-T3 foraminal narrowing.
--- NOTE | 2025-02-02 20:26 | DVH ---
EXAM: MRI THORACIC SPINE WO W INDICATION: MS TECHNIQUE: Multiplanar, multisequence imaging of the thoracic spine with and without contrast. COMPARISON: None FINDINGS: [ANATOMY]: Normal alignment of the thoracic spine. [BONES]: The vertebral bodies are normal in height, alignment, and marrow signal. [CORD]: Question abnormal cord signal which is indeterminate for cord edema versus demyelination at T10-11 (15-67). Associated abnormal enhancement [SPINAL CANAL]: Appearance of severe spinal canal narrowing with possible cord impingement at T9-10 and T10-11. [INTERVERTEBRAL DISCS]: Diffuse disc desiccation. significant multilevel right lateral recess to foraminal disc extrusion T1-2, T2-3, T3-4, T4-5, T5-6, T6-7, T8-9, T9-10. Superimposed left T4-5 lateral recess disc protrusion/ extrusion with inferior foraminal extension and similar imaging appearance of the left at T5-6, T8-9, T9-10. [FACETS]: Facet arthropathy most conspicuous at T9-10 and T10-11 [FORAMINA]: Associated multilevel right-sided predominant foraminal narrowing associated with disc extrusion /protrusions with effacement of the right lateral recesses. Suspected severe bilateral T9-10 and T10-11 foraminal narrowing (12-4). [OTHER]: The visualized paraspinal soft tissues are unremarkable. IMPRESSION: 1. Question abnormal cord signal which is indeterminate for cord edema versus demyelination at T10-1 2. Appearance of severe spinal canal narrowing with possible cord impingement at T9-10 and T10-1 3. Multilevel right lateral recess to foraminal disc extrusions with effacement of the right lateral recesses and associated severe foraminal narrowing at T9-10 and T10-11. 4. Superimposed left-sided lateral recess to foraminal disc protrusion/ extrusion at T4-5, T5-6, T8-9, T9-10.
--- NOTE | 2025-02-02 22:56 | DVHPN2 ---
Progress Note - Dictate Date Seen: Feb 02, 2025 Medical Necessity Reason Pt with a Central, PICC or Fol: No Subjective Mr. Issa is a 29 years old right-handed gentleman with a history of hypertension, diabetes, dyslipidemia, anxiety, obesity, [place] [facility] [place] with a chief complaint of numbness weakness in the lower extremities, I have seen examined the patient, I have talked to his nurse,, he is alert and fully oriented, 20 complaints CBC, 02/01/2025: Okay ESR, 02/01/2025: 4 BMP 02/01/2025: Unremarkable TBI/AST/ALT/AP, 02/01/2025: 0.2/42/44/66 CPK, 02/01/2025: 501, 512, 443 Vitamin B12, 02/01/2025: 334 TSH, 02/22/2020 5:3.09 Ultrasound, 02/01/2025: No gallstones or acute cholecystitis. Hepatic steatosis and hepatomegaly Leg venous Doppler study, 02/01/2025: No right or left femoropopliteal venous thrombosis Chest x-ray, 02/01/2025: No acute disease MRI brain wwo, 02/02/2025: 1. No acute or recent infarct. 2. No enhancing intracranial lesion MRI C-spine, 02/02/2025: 1. No significant MR abnormality of the cervical cord. No significant cervical disc herniation or spinal canal or foraminal narrowing. 2. Prominent right lateral T1 and T2 uncovertebral spurring and/or disc extrusion extending into bilateral inferior foramina contributing to severe right T1-2, T2-T3 foraminal narrowing MRI T-spine, 02/02/2025: 1. Question abnormal cord signal which is indeterminate for cord edema versus demyelination at T10-1. 2. Appearance of severe spinal canal narrowing with possible cord impingement at T9-10 and T10-1 3. Multilevel right lateral recess to foraminal disc extrusions with effacement of the right lateral recesses and associated severe foraminal narrowing at T9-10 and T10-11. 4. Superimposed left-sided lateral recess to foraminal disc protrusion/ extrusion at T4-5, T5-6, T8-9, T9-10. vital signs Vital Sign Date Time Temp Pulse Resp B/P (MAP) Pulse Ox O2 Delivery O2 Flow Rate FiO2 02/02/25 21:00 98.5 112 19 119/72 (88) 95 98.5 02/02/25 08:00 Room Air* 0 21 Total Intake and Output 02/01/25 02/01/25 02/02/25 15:00 23:00 07:00 Intake Total 980 ml Output Total 600 ml Balance 380 ml medications Current Medications Medications Dose Ordered Sig/Jennifer Route Start Time Stop Time Status Last Admin Dose Admin Pantoprazole Sodium 40 mg DAILY IV 02/02/25 10:00 02/02/25 09:27 40 MG Enoxaparin Sodium 60 mg DAILY SC 02/02/25 10:00 02/02/25 09:27 60 MG Citalopram Hydrobromide 40 mg DAILY PO 02/02/25 10:00 02/02/25 09:27 40 MG Dexamethasone 4 mg Q6HR PO 02/02/25 18:00 02/02/25 17:58 4 MG objective General: the patient is well developed and nourished. No acute distress. MENTAL STATUS: Awake and alert. Oriented to person, place, time and general circumstances. Able to give personal history SPEECH, LANGUAGE, HIGHER CORTICAL FUNCTION: no aphasia or dysathria. CRANIAL NERVES: Pupils are equal, round and reactive. EOMs full and conjugate. No nystagmus. Facial sensation intact in all three divisions bilaterally. Mandibular strength intact. Facial muscles symmetrical and strength intact. Tongue midline. No fasciculations or atrophy. SENSATION: Sensation to touch and pinprick is diminished below bilateral T9- T10 dermatomes MOTOR: Normal tone in the upper and lower extremity. Normal muscle bulk. No fasciculations. No abnormal movements or posturing. Muscle strength of the major groups in the upper extremities is 5/5. Muscle strength of the major groups in the lower extremities is 4/5, weaker in the bilateral pelvic girdle muscles. REFLEXES: Deep tendon reflexes are symmetrical. No pathological reflexes. CEREBELLAR/COORDINATION: Finger to nose is normal bilaterally. GAIT/STATION: deferred laboratory and microbiology Laboratory Tests 02/02/25 06:34 Test 02/02/25 06:34 Range/Units Serum Glucose 79 74-106 mg/dL Problem List Paresthesia and weakness in the lower extremities, etiology unclear Transverse myelitis Multiple sclerosis Polymyositis, less likely Assessment/Plan Monitoring Supportive treatment Solu-Medrol 1000 mg IV q.d. D/C Decadron GI prophylaxis Up to chair Physical therapy More recommendation per clinical course This medical document was created using an electronic medical record system with [employer] dictation system. Although this document has been carefully reviewed, there may still be some phonetic and typographical errors. These areas are purely typographical due to imperfections of the software programs, and do not reflect any compromise in the patient's medical care. Prognosis poor Plan discussed with: Patient, Other Total Time (mins): 38 MADDIE AUSTIN MD Feb 02, 2025 22:56
[2025-02-03] VITALS (7 sets, daily range): BP systolic 106–135; BP diastolic 67–84; PULSE 80–112; RESP 17–20; TEMP 97.7–98.3; O2SAT 95–98
--- NOTE | 2025-02-03 09:36 | DVHPNRES ---
Progress Note Date Seen: Feb 03, 2025 Resident Creating Document: KEENAN RICCI RESIDENT Medical Necessity Reason Pt with a Central, PICC or Fol: No Subjective Review of Systems Patient seen and examined at bedside Continues to have bilateral lower extremity numbness and weakness, notes minimal improvement from prior Out bed to chair Denies any other new complaints CK trending down appropriately We will obtain Cardiology consult for cardiology clearance Objective vital signs Vital Sign Date Time Temp Pulse Resp B/P (MAP) Pulse Ox O2 Delivery O2 Flow Rate FiO2 02/03/25 09:00 97.7 102 20 121/79 (93) 97 97.7 02/02/25 20:00 Room Air* 0 21 Total Intake and Output 02/02/25 02/02/25 02/03/25 15:00 23:00 07:00 Intake Total 1500 ml 1500 ml Output Total 1450 ml 1350 ml Balance 50 ml 150 ml medications Current Medications Medications Dose Ordered Sig/Jennifer Route Start Time Stop Time Status Last Admin Dose Admin Pantoprazole Sodium 40 mg DAILY IV 02/02/25 10:00 02/02/25 09:27 40 MG Enoxaparin Sodium 60 mg DAILY SC 02/02/25 10:00 02/02/25 09:27 60 MG Citalopram Hydrobromide 40 mg DAILY PO 02/02/25 10:00 02/02/25 09:27 40 MG Dexamethasone 4 mg Q6HR PO 02/02/25 18:00 02/02/25 17:58 4 MG Examination General Appearance: Alert, Oriented X3, Cooperative, No acute distress HEENT: Atraumatic, PERRLA, EOMI, Mucous membrane moist/pink Respiratory: Clear to auscultation, Normal air movement Cardiovascular: Regular rate, Normal S1, Normal S2, No murmurs, no chest wall tenderness Abdominal: Normal bowel sounds, Soft, No tenderness, No hepatospenomegaly, No masses Extremities: No clubbing, No cyanosis, No edema, Normal pulses, No tenderness/swelling Skin: No rashes, No breakdown, No significant lesion Neuro: 2/5 strength in bilateral lower limbs, no sensation in bilateral lower limbs Psych/Mental Status: Mental status NL, Mood NL laboratory and microbiology Laboratory Tests 02/02/25 06:34 Test 02/02/25 06:34 Range/Units Serum Glucose 79 74-106 mg/dL Labs and/or images reviewed: Labs reviewed by me, Image(s) reviewed by me Problem List/Assessment/Plan Problem List/Assessment/Plan Bilateral lower extremity paresthesias and weakness with unclear etiology; transverse myelitis versus multiple sclerosis versus polymyositis? Lumbar degenerative disc disease with a large paracentral disc protrusion L4-5 Severe spinal stenosis at L5 Severe neural foraminal stenosis at multiple levels Chronic low back pain due to accident in the past - lumbar spine MRI: Moderate lumbar degenerative disc disease. Large central/left paracentral disc protrusion at L4-5 extending 7 mm posteriorly which compresses upon the descending left L5 nerve root and also results in severe spinal canal stenosis at this level. Severe neural foraminal stenosis at L4-5 and L5-S1, moderate neural foraminal stenosis L3-4. [id number] neural foraminal stenosis at T12-L1, L1-2, L2-3. Diffusely decreased T1 signal within the marrow which can be secondary to anemia, myeloproliferative disorder, myelofibrosis, leukemia/lymphoma/malignancy. - brain MRI: No acute or recent infarct. No enhancing intracranial lesion. - neck MRI: No significant MRI abnormality of the cervical cord. No significant cervical disc herniation or spinal canal or foraminal narrowing. Prominent right lateral T1 and T2 uncovertebral spurring and/or disc extrusion extending into bilateral inferior foramina contributing to severe right T1-T2, T2-T3 foraminal narrowing. - thoracic spine MRI: Question abnormal cord signal which is indeterminate for cord edema versus demyelination at T10-1. Appearance of severe spinal canal narrowing with possible cord impingement at T9-10 and T10-11. Multilevel right lateral recess to foraminal disc extrusions with effacement of the right lateral recesses and associated severe foraminal narrowing at T9-10 and T10-11. Superimposed left-sided lateral recess to foraminal disc protrusion/ extrusion at T4-5, T5-6, T8-9, T9-10. - consulted neurology - IV Solu-Medrol 1000 mg once daily for 3 days - consulted spine surgery, Cardiology clearance for probable procedure on 02/05/2025 - consulted cardiology for cardiac clearance, ordered echocardiogram, EKG. Elevated CK, likely statin induced myopathy? - Liver usg: No gallstones or acute cholecystitis. Hepatic steatosis and hepatomegaly. - CKD downtrending appropriately - monitor Transaminitis, improving - monitor Obesity, grade 3 - counseled History of prediabetes Dyslipidemia Essential hypertension - holding home antihypertensives as blood pressure on the softer side - holding statins as transaminitis improves Depression, likely MDD - resumed home medications citalopram 40 mg p.o. daily PUD prophylaxis: protonix 40mg DVT prophylaxis: Levonox 40mg Goals of care: Full code, discussed for >16 minutes on 02/03/2025 Plan discussed with patient Plan discussed with Emigdio Harrison Plan discussed with: Patient, Other (RN) Date of Service: Feb 03, 2025 Billing Provider: NAHEED RIVAS MD Common Visit Codes: [id number] INP/OBS CARE(HIGH) KEENAN RICCI RESIDENT Feb 03, 2025 09:36 NAHEED RIVAS MD Feb 03, 2025 15:51
--- NOTE | 2025-02-03 12:55 | DVHPN2 ---
Progress Note - Dictate Date Seen: Feb 03, 2025 Medical Necessity Reason Pt with a Central, PICC or Fol: No Subjective PT WITH SPINAL STENOSIS LE WEAKNESS OBESITY MAY REQUIRE SPINAL DECOMPRESSION vital signs Vital Sign Date Time Temp Pulse Resp B/P (MAP) Pulse Ox O2 Delivery O2 Flow Rate FiO2 02/03/25 09:00 97.7 102 20 121/79 (93) 97 97.7 02/03/25 08:00 Room Air* 0 21 Total Intake and Output 02/02/25 02/02/25 02/03/25 15:00 23:00 07:00 Intake Total 1500 ml 1500 ml Output Total 1450 ml 1350 ml Balance 50 ml 150 ml medications Current Medications Medications Dose Ordered Sig/Jennifer Route Start Time Stop Time Status Last Admin Dose Admin Pantoprazole Sodium 40 mg DAILY IV 02/02/25 10:00 02/03/25 10:52 40 MG Enoxaparin Sodium 60 mg DAILY SC 02/02/25 10:00 02/03/25 10:51 60 MG Citalopram Hydrobromide 40 mg DAILY PO 02/02/25 10:00 02/03/25 10:51 40 MG Methylprednisolone Sodium Succinate 1000 mg/Sodium Chloride 250 ml @ 300 mls/hr DAILY IV 02/03/25 10:00 02/05/25 11:00 laboratory and microbiology Laboratory Tests 02/02/25 06:34 Test 02/02/25 06:34 Range/Units Serum Glucose 79 74-106 mg/dL Problem List SPINAL STENOSIS LE WEAKNESS OBESITY MAY REQUIRE SPINAL DECOMPRESSION Assessment/Plan MAY PROCEED WITH SURGERY ECHO EF >55% ASA II DVT PROPHYLAXIS Plan discussed with: Patient BENNETT GUEVARA MD Feb 03, 2025 12:55
--- NOTE | 2025-02-03 13:25 | DVHSR ---
APPROVED REPORT EXAM: Two-dimensional and M-mode echocardiogram with Doppler and color Doppler. Blood Pressure: 121/79 mmHg INDICATION Pre-Op RISK FACTORS Obesity: Height: 5'10", Weight: 382 DIMENSIONS LVDd 4.7 (3.8-5.7cm) LA (2D) 4.2 (1.9-4.0cm) Aortic Root 3.4 (2.0-3.7cm) LVDs 3.2 (2.5-4.0cm) LA (MM) (1.9-4.0cm) Aortic Cusp Exc 2.5 (1.5-2.0cm) EF (%) 60.0 (55-70%) Rt. Atrium 3.6 (1.9-4.0cm) Asc. Aorta cm IVSd 1.3 (0.7-1.1cm) RV (D) (1.8-2.4cm) PWd 1.2 (0.7-1.1cm) Mitral Valve Mitral Mitral Stenosis E wave 0.94m/s MV Mean GR. mmHg A wave 0.89m/s MV Peak GR. mmHg E/A ratio 1.1 2D MVA cm2 DECEL Time 222ms PRESS 1/2 Time ms Aortic Valve Aortic Valve Aortic Stenosis V1 1.45m/s AO Mean GR. 5mmHg V2 1.57m/s AO Peak GR. 10mmHg LVOT Diameter 2.6 (1.8-2.4cm) Doppler JUAN MANUEL 4.90cm2 Pulmonic Valve V2 1.17m/s Tricuspid Valve TR Velocity 2.95m/s RVSP 43mmHg Other Information Technically limited study due to body habitus. Conclusion EF >55% LVH LAE MILD MAC MILD AV CALCIFICATION MILD TO MOD AI MILD PAH
[2025-02-03] MEDS: methylPREDNISolone SOD SUCC 1,000 MG in SODIUM CHL 0.9% 250 ML IV SCH (15:49)
--- NOTE | 2025-02-03 17:31 | ECG ---
[facility] Test Date: 2025-02-03 Test Time: 17:29:11 Pat Name: VANITA SOFIA Department: Room: 0286 B Gender: M Funeral Director: HP : [id number] Requested By: KEENAN RICCI Order Number: [id number] Reading MD: Joe Simons Measurements Intervals [place] Rate: 76 P: 64 [place]: 181 QRS: 19 QRSD: 99 T: 8 QT: 394 QTc: 444 Interpretive Statements Sinus rhythm Electronically Signed On 02-04-2025 11:12:39 PST by Joe Simons Please click the below link to view image of tracing.
--- NOTE | 2025-02-03 23:52 | DVHPN2 ---
Progress Note - Dictate Date Seen: Feb 03, 2025 Medical Necessity Reason Pt with a Central, PICC or Fol: No Subjective Mr. Issa is a 29 years old right-handed gentleman with a history of hypertension, diabetes, dyslipidemia, anxiety, obesity, he came to the [facility] on 02/01/2025 with a chief complaint of numbness weakness in the lower extremities, I have seen examined the patient, I have talked to his nurse,, he is alert and fully oriented, no new complaints Day one of IV Solu-Medrol CBC, 02/01/2025: Okay ESR, 02/01/2025: 4 BMP 02/01/2025: Unremarkable TBI/AST/ALT/AP, 02/01/2025: 0.2/42/44/66 CPK, 02/01/2025: 501, 512, 443 Vitamin B12, 02/01/2025: 334 TSH, 02/22/2020 5:3.09 Ultrasound, 02/01/2025: No gallstones or acute cholecystitis. Hepatic steatosis and hepatomegaly Leg venous Doppler study, 02/01/2025: No right or left femoropopliteal venous thrombosis Chest x-ray, 02/01/2025: No acute disease MRI brain wwo, 02/02/2025: 1. No acute or recent infarct. 2. No enhancing intracranial lesion MRI C-spine, 02/02/2025: 1. No significant MR abnormality of the cervical cord. No significant cervical disc herniation or spinal canal or foraminal narrowing. 2. Prominent right lateral T1 and T2 uncovertebral spurring and/or disc extrusion extending into bilateral inferior foramina contributing to severe right T1-2, T2-T3 foraminal narrowing MRI T-spine, 02/02/2025: 1. Question abnormal cord signal which is indeterminate for cord edema versus demyelination at T10-1. 2. Appearance of severe spinal canal narrowing with possible cord impingement at T9-10 and T10-1 3. Multilevel right lateral recess to foraminal disc extrusions with effacement of the right lateral recesses and associated severe foraminal narrowing at T9-10 and T10-11. 4. Superimposed left-sided lateral recess to foraminal disc protrusion/ extrusion at T4-5, T5-6, T8-9, T9-10. vital signs Vital Sign Date Time Temp Pulse Resp B/P (MAP) Pulse Ox O2 Delivery O2 Flow Rate FiO2 02/03/25 21:00 97.8 96 18 116/71 (86) 97 97.8 02/03/25 20:00 Room Air* 0 21 Total Intake and Output 02/02/25 02/02/25 02/03/25 15:00 23:00 07:00 Intake Total 1500 ml 1500 ml Output Total 1450 ml 1350 ml Balance 50 ml 150 ml medications Current Medications Medications Dose Ordered Sig/Jennifer Route Start Time Stop Time Status Last Admin Dose Admin Pantoprazole Sodium 40 mg DAILY IV 02/02/25 10:00 02/03/25 10:52 40 MG Enoxaparin Sodium 60 mg DAILY SC 02/02/25 10:00 02/03/25 10:51 60 MG Citalopram Hydrobromide 40 mg DAILY PO 02/02/25 10:00 02/03/25 10:51 40 MG Methylprednisolone Sodium Succinate 1000 mg/Sodium Chloride 250 ml @ 300 mls/hr DAILY IV 02/03/25 10:00 02/05/25 11:00 02/03/25 15:49 300 MLS/HR objective General: the patient is well developed and nourished. No acute distress. MENTAL STATUS: Awake and alert. Oriented to person, place, time and general circumstances. Able to give personal history SPEECH, LANGUAGE, HIGHER CORTICAL FUNCTION: no aphasia or dysathria. CRANIAL NERVES: Pupils are equal, round and reactive. EOMs full and conjugate. No nystagmus. Facial sensation intact in all three divisions bilaterally. Mandibular strength intact. Facial muscles symmetrical and strength intact. Tongue midline. No fasciculations or atrophy. SENSATION: Sensation to touch and pinprick is diminished below bilateral T10- T11 dermatomes MOTOR: Normal tone in the upper and lower extremity. Normal muscle bulk. No fasciculations. No abnormal movements or posturing. Muscle strength of the major groups in the upper extremities is 5/5. Muscle strength of the major groups in the lower extremities is 4/5, weaker in the bilateral pelvic girdle muscles. REFLEXES: Deep tendon reflexes are symmetrical. No pathological reflexes. CEREBELLAR/COORDINATION: Finger to nose is normal bilaterally. GAIT/STATION: deferred laboratory and microbiology Laboratory Tests 02/02/25 06:34 Test 02/02/25 06:34 Range/Units Serum Glucose 79 74-106 mg/dL Problem List Paresthesia and weakness in the lower extremities, etiology unclear Transverse myelitis Multiple sclerosis Polymyositis, less likely Assessment/Plan Monitoring Supportive treatment Solu-Medrol 1000 mg IV q.d. D/C Decadron GI prophylaxis Up to chair Physical therapy More recommendation per clinical course This medical document was created using an electronic medical record system with [employer] dictation system. Although this document has been carefully reviewed, there may still be some phonetic and typographical errors. These areas are purely typographical due to imperfections of the software programs, and do not reflect any compromise in the patient's medical care. Prognosis poor Plan discussed with: Patient, Other MADDIE AUSTIN MD Feb 03, 2025 23:52
[2025-02-04 01:00] VITALS: BP 130/65; PULSE 83; RESP 17; TEMP 97.6; O2SAT 96
[2025-02-04 05:00] VITALS: BP 105/58; PULSE 73; RESP 17; TEMP 97.8; O2SAT 97
[2025-02-04 07:57] LABS: Hematocrit 43.9 % (41.0-53.0); Hemoglobin 15.0 g/dL (13.5-17.5); Mean Corpuscular Hemoglobin 30.0 pg (28.0-32.0); Mean Corpuscular Volume 87.9 fL (80.0-100.0); Nucleated Red Blood Cells % 0.0 %
[2025-02-04 08:24] LABS: Alanine Aminotransferase 35 U/L (7-40); Albumin 4.6 g/dL (3.2-4.8); Alkaline Phosphatase 56 U/L (46-116); BUN/Creatinine Ratio 11.6 (10.0-20.0); Bilirubin, Total 0.6 mg/dL (0.2-1.0); Calcium 9.3 mg/dL (8.7-10.4); Carbon Dioxide 21 mmol/L (20-31); Potassium 4.3 mmol/L (3.5-5.1); Sodium 139 mmol/L (136-145); Total Protein 7.8 g/dL (5.7-8.2)
[2025-02-04 08:26] LABS: Blood Urea Nitrogen 8 mg/dL (9-23); Glucose 113 mg/dL (74-106)
[2025-02-04 09:00] VITALS: BP 118/62; PULSE 82; RESP 18; TEMP 97.6; O2SAT 98
[2025-02-04 09:02] LABS: Anion Gap 13 (5-15); Chloride 105 mmol/L (98-107)
--- NOTE | 2025-02-04 13:58 | DVHPN2 ---
Progress Note - Dictate Date Seen: Feb 04, 2025 Medical Necessity Reason Pt with a Central, PICC or Fol: No Subjective PT WITH SPINAL STENOSIS LE WEAKNESS OBESITY MAY REQUIRE SPINAL DECOMPRESSION vital signs Vital Sign Date Time Temp Pulse Resp B/P (MAP) Pulse Ox O2 Delivery O2 Flow Rate FiO2 02/04/25 09:00 97.6 82 18 118/62 (80) 98 97.6 02/04/25 08:10 Room Air* 0 21 Total Intake and Output 02/03/25 02/03/25 02/04/25 15:00 23:00 07:00 Intake Total 1520 ml 1610 ml Output Total 1500 ml 725 ml Balance 20 ml 885 ml medications Current Medications Medications Dose Ordered Sig/Jennifer Route Start Time Stop Time Status Last Admin Dose Admin Pantoprazole Sodium 40 mg DAILY IV 02/02/25 10:00 02/04/25 08:47 40 MG Enoxaparin Sodium 60 mg DAILY SC 02/02/25 10:00 02/04/25 08:47 60 MG Citalopram Hydrobromide 40 mg DAILY PO 02/02/25 10:00 02/04/25 08:48 40 MG Methylprednisolone Sodium Succinate 1000 mg/Sodium Chloride 250 ml @ 300 mls/hr DAILY IV 02/03/25 10:00 02/05/25 11:00 02/04/25 09:43 300 MLS/HR laboratory and microbiology Laboratory Tests 02/04/25 07:00 Test 02/04/25 07:00 Range/Units Serum Glucose 113 H 74-106 mg/dL Problem List SPINAL STENOSIS LE WEAKNESS OBESITY MAY REQUIRE SPINAL DECOMPRESSION Assessment/Plan MAY PROCEED WITH SURGERY ECHO EF >55% ASA II DVT PROPHYLAXIS Plan discussed with: Patient BENNETT GUEVARA MD Feb 04, 2025 13:58
--- NOTE | 2025-02-04 16:41 | DVHPNRES ---
Progress Note Date Seen: Feb 04, 2025 Resident Creating Document: ANGLE ANDREWS RESIDENT Medical Necessity Reason Pt with a Central, PICC or Fol: No Subjective Review of Systems Patient seen at bedside. Still complains of bilateral lower limb weakness and numbness. Scheduled for surgery by spine surgery tomorrow. Mr. Issa, A 29-year-old male with a history of diabetes mellitus, dyslipidemia, hypertension, anxiety, and obesity presents with bilateral lower limb weakness and numbness persisting for two weeks. 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 He has recently abstained from alcohol and feels dehydrated but denies fever, shortness of breath, or other systemic symptoms. His review of systems is largely unremarkable except for the noted neurological complaints. He is currently taking metformin, Ozempic, losartan, atenolol, atorvastatin, and citalopram, with no known allergies and no relevant surgical or family history. He denies smoking, alcohol, and illicit drug use. Objective vital signs Vital Sign Date Time Temp Pulse Resp B/P (MAP) Pulse Ox O2 Delivery O2 Flow Rate FiO2 02/04/25 09:00 97.6 82 18 118/62 (80) 98 97.6 02/04/25 08:10 Room Air* 0 21 Total Intake and Output 02/03/25 02/03/25 02/04/25 15:00 23:00 07:00 Intake Total 1520 ml 1610 ml Output Total 1500 ml 725 ml Balance 20 ml 885 ml medications Current Medications Medications Dose Ordered Sig/Jennifer Route Start Time Stop Time Status Last Admin Dose Admin Pantoprazole Sodium 40 mg DAILY IV 02/02/25 10:00 02/04/25 08:47 40 MG Enoxaparin Sodium 60 mg DAILY SC 02/02/25 10:00 02/04/25 08:47 60 MG Citalopram Hydrobromide 40 mg DAILY PO 02/02/25 10:00 02/04/25 08:48 40 MG Methylprednisolone Sodium Succinate 1000 mg/Sodium Chloride 250 ml @ 300 mls/hr DAILY IV 02/03/25 10:00 02/05/25 11:00 02/04/25 09:43 300 MLS/HR Examination General Appearance: Alert, Oriented X3, Cooperative, No acute distress HEENT: Atraumatic, PERRLA, EOMI, Mucous membrane moist/pink Respiratory: Clear to auscultation, Normal air movement Cardiovascular: Regular rate, Normal S1, Normal S2, No murmurs, no chest wall tenderness Abdominal: Normal bowel sounds, Soft, No tenderness, No hepatospenomegaly, No masses Extremities: No clubbing, No cyanosis, No edema, Normal pulses, No tenderness/swelling Skin: No rashes, No breakdown, No significant lesion Neuro: 1/5 strength in bilateral lower limbs, no sensation in bilateral lower limbs Psych/Mental Status: Mental status NL, Mood NL laboratory and microbiology Laboratory Tests 02/04/25 07:00 Test 02/04/25 07:00 Range/Units Serum Glucose 113 H 74-106 mg/dL Microbiology Date/Time Source Procedure Growth Status 02/03/25 08:54 Stool Stool Culture - Preliminary Resulted 02/03/25 08:54 Stool Shiga Toxin I & II - Final Resulted Problem List/Assessment/Plan Problem List/Assessment/Plan Assessment and plan # Bilateral lower extremity paresthesias and weakness with unclear etiology; ? transverse myelitis Lumbar degenerative disc disease with a large paracentral disc protrusion L4-5 Severe spinal stenosis at L5 Severe neural foraminal stenosis at multiple levels: Scheduled for spine surgery # Progressive b/l lower limb weakeness with paresthesia : Differentials include transverse myelitis, Guillain-Wahoo syndrome, central canal stenosis, spinal injury, autoimmune disease and subacute combined degeneration: Lumbar MRI, Neurology input, Lumbar puncture depending on Neurology, PT, fall precautions. # Likley Statin myopathy: elevated CK: On home at low-dose statin 10 trend Ck , IV fluid to continue, BMP daily, correct electrolytes, check lipid panel, check further need of statin. # elevated CK, likely exertional: Differentials include myositis, myopathy: Check UDS, highly likely due to the statin # mild Transaminitis, likely due to NAFLD: Trend liver functions, lifestyle modification, weight loss # Obesity grade 3+, BMI 55.4 kg/m2: on Ozempic, continue weight loss and weight management, lifestyle modifications continue # recurrent chronic diarrhea: Could be due to metformin use, can hold, rule out B12 and electrolyte disturbances. Given psychiatric history, irritable bowel syndrome is differential, diagnosis of exclusion. # history of Prediabetes, HbA1c 5.1, likely improve # history of Dyslipidemia: Follow lipid panels # history of Essential hypertension: Home antihypertensives reviewed lisinopril and atenolol, Continue antihypertensives as needed, Target blood pressure in- hospital below 140/90, salt restricted DASH/cardiac diet. # generalized anxiety disorder/major depressive disorder: Continue home medications, on citalopram 40 mg daily. # history of lower back injury due to RTA in past: Back pain needed physiotherapy previously. # known left-sided sciatica # CT and x-ray reveals premature spinal osteoarthritis likely due to weight # Moderate lumbar degenerative disc disease: Conservative management, physical therapy, pain management # GI prophylaxis with PPI # DVT prophylaxis with Lovenox Diet: Cardiac Plan discussed with patient Plan discussed with Plan discussed with: Patient Date of Service: Feb 04, 2025 Billing Provider: KACIE CARSON MD Common Visit Codes: [id number] INP/OBS CARE(HIGH) ANGLE ANDREWS RESIDENT Feb 04, 2025 16:41 KACIE CARSON MD Feb 04, 2025 18:14
[2025-02-04 17:00] VITALS: BP 131/73; PULSE 86; RESP 19; TEMP 97.9; O2SAT 97
[2025-02-04 20:00] VITALS: PULSE 89; RESP 18
[2025-02-04 21:00] VITALS: BP 115/78; PULSE 89; RESP 18; TEMP 98; O2SAT 98
--- NOTE | 2025-02-04 23:22 | DVHPN2 ---
Progress Note - Dictate Date Seen: Feb 04, 2025 Medical Necessity Reason Pt with a Central, PICC or Fol: No Subjective Mr. Issa is a 29 years old right-handed gentleman with a history of hypertension, diabetes, dyslipidemia, anxiety, obesity, he came to the [facility] on 02/01/2025 with a chief complaint of numbness weakness in the lower extremities, I have seen examined the patient, I have talked to his nurse,, he is alert and fully oriented, no new complaints Day 2 of IV Solu-Medrol CBC, 02/01/2025: Okay ESR, 02/01/2025: 4 BMP 02/01/2025: Unremarkable TBI/AST/ALT/AP, 02/01/2025: 0.2/42/44/66 CPK, 02/01/2025: 501, 512, 443 Vitamin B12, 02/01/2025: 334 TSH, 02/22/2020 5:3.09 Ultrasound, 02/01/2025: No gallstones or acute cholecystitis. Hepatic steatosis and hepatomegaly Leg venous Doppler study, 02/01/2025: No right or left femoropopliteal venous thrombosis Chest x-ray, 02/01/2025: No acute disease MRI brain wwo, 02/02/2025: 1. No acute or recent infarct. 2. No enhancing intracranial lesion MRI C-spine, 02/02/2025: 1. No significant MR abnormality of the cervical cord. No significant cervical disc herniation or spinal canal or foraminal narrowing. 2. Prominent right lateral T1 and T2 uncovertebral spurring and/or disc extrusion extending into bilateral inferior foramina contributing to severe right T1-2, T2-T3 foraminal narrowing MRI T-spine, 02/02/2025: 1. Question abnormal cord signal which is indeterminate for cord edema versus demyelination at T10-1. 2. Appearance of severe spinal canal narrowing with possible cord impingement at T9-10 and T10-1 3. Multilevel right lateral recess to foraminal disc extrusions with effacement of the right lateral recesses and associated severe foraminal narrowing at T9-10 and T10-11. 4. Superimposed left-sided lateral recess to foraminal disc protrusion/ extrusion at T4-5, T5-6, T8-9, T9-10. vital signs Vital Sign Date Time Temp Pulse Resp B/P (MAP) Pulse Ox O2 Delivery O2 Flow Rate FiO2 02/04/25 21:00 98.0 89 18 115/78 (90) 98 98.0 02/04/25 20:00 Room Air* 0 21 Total Intake and Output 02/03/25 02/03/25 02/04/25 15:00 23:00 07:00 Intake Total 1520 ml 1610 ml Output Total 1500 ml 725 ml Balance 20 ml 885 ml medications Current Medications Medications Dose Ordered Sig/Jennifer Route Start Time Stop Time Status Last Admin Dose Admin Pantoprazole Sodium 40 mg DAILY IV 02/02/25 10:00 02/04/25 08:47 40 MG Enoxaparin Sodium 60 mg DAILY SC 02/02/25 10:00 02/04/25 08:47 60 MG Citalopram Hydrobromide 40 mg DAILY PO 02/02/25 10:00 02/04/25 08:48 40 MG Methylprednisolone Sodium Succinate 1000 mg/Sodium Chloride 250 ml @ 300 mls/hr DAILY IV 02/03/25 10:00 02/05/25 11:00 02/04/25 09:43 300 MLS/HR objective General: the patient is well developed and nourished. No acute distress. MENTAL STATUS: Awake and alert. Oriented to person, place, time and general circumstances. Able to give personal history SPEECH, LANGUAGE, HIGHER CORTICAL FUNCTION: no aphasia or dysathria. CRANIAL NERVES: Pupils are equal, round and reactive. EOMs full and conjugate. No nystagmus. Facial sensation intact in all three divisions bilaterally. Mandibular strength intact. Facial muscles symmetrical and strength intact. Tongue midline. No fasciculations or atrophy. SENSATION: Sensation to touch and pinprick is diminished below bilateral T10- T11 dermatomes MOTOR: Normal tone in the upper and lower extremity. Normal muscle bulk. No fasciculations. No abnormal movements or posturing. Muscle strength of the major groups in the upper extremities is 5/5. Muscle strength of the major groups in the lower extremities is 4/5, weaker in the bilateral pelvic girdle muscles. REFLEXES: Deep tendon reflexes are symmetrical. No pathological reflexes. CEREBELLAR/COORDINATION: Finger to nose is normal bilaterally. GAIT/STATION: deferred laboratory and microbiology Laboratory Tests 02/04/25 07:00 Test 02/04/25 07:00 Range/Units Serum Glucose 113 H 74-106 mg/dL Problem List Paresthesia and weakness in the lower extremities, etiology unclear Transverse myelitis Multiple sclerosis Polymyositis, less likely Assessment/Plan Monitoring Supportive treatment Solu-Medrol 1000 mg IV q.d. D/C Decadron GI prophylaxis Up to chair Physical therapy More recommendation per clinical course This medical document was created using an electronic medical record system with [employer] dictation system. Although this document has been carefully reviewed, there may still be some phonetic and typographical errors. These areas are purely typographical due to imperfections of the software programs, and do not reflect any compromise in the patient's medical care. Prognosis poor Plan discussed with: Other MADDIE AUSTIN MD Feb 04, 2025 23:22
[2025-02-05] VITALS (9 sets, daily range): BP systolic 116–139; BP diastolic 65–94; PULSE 70–94; RESP 12–18; TEMP 97.6–98.2; O2SAT 94–99
[2025-02-05 07:32] LABS: Hematocrit 43.5 % (41.0-53.0); Hemoglobin 14.9 g/dL (13.5-17.5); Mean Corpuscular Hemoglobin 29.9 pg (28.0-32.0); Mean Corpuscular Volume 87.2 fL (80.0-100.0); Nucleated Red Blood Cells % 0.1 %
[2025-02-05] MEDS ORDERED: fentaNYL CITRATE 100 MCG/2 ML VL ONE ×2 (10:41→13:47)
[2025-02-05] MEDS ORDERED: PROPOFOL 10 MG/ML 20 ML IV ONE ×5 (10:41→13:44)
[2025-02-05] MEDS ORDERED: MIDAZOLAM HCL 2MG/2ML 2ml VIAL (1mg/ml) ONE (10:41)
[2025-02-05] MEDS ORDERED: ROCURONIUM 10MG/ML 10ML VIAL IV ONE (10:41)
[2025-02-05] MEDS ORDERED: METOCLOPRAMIDE HCL 5MG/ml INJ 2ml VIAL ONE (10:42)
[2025-02-05] MEDS ORDERED: ONDANSETRON HCL 4 MG/2 ML VIAL ONE (10:42)
[2025-02-05] MEDS ORDERED: fentaNYL CITRATE 5 ML ONE ×2 (11:17→12:24)
[2025-02-05] MEDS: ceFAZolin 2 GM/D5W50ml 50 ML IV ONE (12:00)
[2025-02-05] MEDS ORDERED: ONDANSETRON HCL 4 MG/2 ML VIAL IV PRN (12:00)
[2025-02-05] MEDS ORDERED: NITROGLYCERIN 0.4 MG SL TAB SL PRN (12:00)
[2025-02-05] MEDS ORDERED: ACETAMINOPHEN 325 MG TAB PO PRN (12:00)
[2025-02-05] MEDS ORDERED: MORPHINE SULFATE INJ 2 MG/ml SYRG IV PRN ×2 (12:00)
[2025-02-05] MEDS: TRANEXAMIC ACID 20 ML ONE (12:05)
[2025-02-05] MEDS ORDERED: SUGAMMADEX 200mg/2ml Vial (100MG/ML) IV ONE (13:59)
[2025-02-05] MEDS: CYCLOBENZAPRINE HCL 10 MG TAB PO SCH (14:00)
--- NOTE | 2025-02-05 15:29 | DVHOP2 ---
Operative Report - 2 Report Details Date: 02/05/25 Preop Diagnosis: 1. Massive lumbar 4/5 herniated disc causing severe canal compromise and incapacitating radiculopathy and progressive neurologic deficit 2. lumbar spinal stenosis at L3/4 and L4/5 causing severe neurogenic claudication Postop Diagnosis: same as pre op Surgeon: Gasper Calloway MD Parts Puller: none Anesthesiologist: riana Anesthesia: General Consent: The patient was informed of the risks and benefits of the procedure. These include but are not limited to complications of anesthesia, postoperative infection, incomplete relief of symptoms, recurrence of symptoms, damage to blood vessels, nerves and tendons, deep venous thrombosis, pulmonary embolism and possible need for repeat surgery in the future. Name of Procedure Performed see detailed note Procedure Details Procedure Details: Pre-op Diagnosis: 1. Massive lumbar 4/5 herniated disc causing severe canal compromise and incapacitating radiculopathy and progressive neurologic deficit 2. lumbar spinal stenosis at L3/4 and L4/5 causing severe neurogenic claudication Post-op Diagnosis: same as pre op Procedure: Lumbar 4 laminectomy with Lumbar 4 foraminotomies and facetectomies to decompress central canal and Lumbar 4 nerve roots lumbar 3 laminectomy with lumbar 3 foraminotomies and facetectomies to decompress the central canal and lumbar 3 nerve roots Lumbar 4 to 5 posterior spinal interbody fusion with PEEK cage Lumbar 4 to 5 posterior spinal inter-transverse fusion with bone graft Lumbar 4 to 5 posterior spinal instrumentation with pedicle screws Local Bone Autograft For Fusion Allograft Bone to augment Fusion Use of Demineralized Bone Matrix to Augment Fusion Microscope For Microdissection Surgeon: Gasper Calloway MD Assist: none Anesthesia: General Fluids and EBL: See anesthesia note Patient was seen in the Pre Anesthesia Care Unit (PACU) and the operative site was initialed by me. All questions were answered to the patients satisfaction and chart reviewed. The patient was taken to the operative room where pre- operative antibiotics were given 30 minutes prior to incision. General anesthesia was induced and neuro-monitoring leads placed. Rubi catheter was placed. The patient was turned prone onto the [facility] spinal table. While positioning, I made sure that the belly was free to allow proper expansion of the lungs. The hips were extended and all bony prominences padded. The shoulders were abducted 80 degree and the elbows flexed 100 degrees with no tension on the brachial plexus. I check the foot arterial pulses and they were palpable. The patient was prepped and draped and time out was taken at this time per usual protocol. At this time, the C-arm fluoroscope was brought in and was used to mason the incision borders proximally and distally. Using a Number 10 Blade, an incision was made extending it proximally and distally per C arm mason from the posterior spinous process of lumbar 4,5 down to the lumbo-dorsal fascia. All bleeding was controlled with electrocautery. Self-retaining retractors were placed. Electrocautery was then used to take down the lumbo- dorsal fascia, to free the muscle off the bone bilaterally. A Lydia retractor was placed over the posterior spinous process proximally and a lateral C-arm fl uoroscope image was taken to insure we were at the correct level. Next, using bovie electro cautery, The deep fascia laterally to the facet joints was removed to expose the transverse processes of lumbar 4 and 5 while taking care to avoid injuring the facet capsule at the proximal end of the incision. Next, the microscope was bought in for visualization and using a Luxell rongeur, the posterior spinous process of lumbar 4 and 5 bone were removed and the bone was saved for use as local autograft. I used alternating Kerison 2 mm and 3 mm rongeurs to perform central laminectomies lumbar 5 and 4 to decompress the central canal. Next using alternating Kerison 2mm and 3 mm rongeurs, the superior articular facets of lumbar 4 and 5 were removed bilaterally to decompress the lateral recess (facetectomies) and then extended proximally to decompress the foramen bilaterally (foraminotomies). Next I used a pituitary rongeur and alternating curve curettes to remove the large herniated L4/5 disc and immediately, one was able to note the nerve roots and dura were no longer under tension. Neuromonitoring lead readings remained stable throughout. I used a ball tipped nerve probed to insure that the respective nerve roots were able to be mobilized 5mm in each direction were unimpeded in the lateral recess and foramen. Next I carefully inspected the dura to make sure no durotomy was visible and it was not. Next I retracted the lumbar 5 nerve root on the right side medially and used increased size arturo to prepare the disk space. Further preparation was done the curved curettes and a pituitary rongeur to remove loose tissue to get down to a clean bed of bleeding bone. Next I used trials until the proper size and tension achieved and placed a PEEK inter body device with bone graft placed in it into the L4/5 disc space. I covered the exposed dura with gelfoam soaked in thrombin and the microscope was wheeled away from the operative filed. The C-arm fluoroscope was brought in and perfect AP views of the lumbar 4 and 5 pedicles were obtained. I placed bilateral pedicle screws at these levels by: using a Lenke awl to make a pilot boat captain hole, then a ball tip robe to make sure there was no pedicle breach, then a tap to prepare the track and a 6.5 mm diameter 45 mm length pedicle screw was placed bilaterally. This step to place bilateral pedicle screws was repeated up to the lumbar 4 and 5 level. Next, the c-arm fluoroscope took an AP and lateral x-ray to ensure proper placement of the pedicle screws. Next, the neuro-stimulation probe was placed over the tip of each screw and each screw stimulated only after a current greater than 10 mA was delivered to the screw. Next , I took a Midas Kavon Drill to decorticate the transverse process which were exposed and local bone graft, allograft bone and Demineralized bone matrix were placed along the inter transverse process intervals bilaterally (the fusion bed). Next a curved amrita sized to fit the pedicle screw interval was placed and secured to each pedicle screw using set screws, The set screws were tightened using a torque screwdriver (set to 10 N*M torque) to secure the amrita to the pedicle screws anabel aterally. Final AP and lateral C arm fluoroscopic films were taken at this time. Next a 10 Algerian diameter Hemovac drain was laced deep to the lumbo- dorsal fascia. The lumbo-dorsal fascia was closed with interrupted 0-Vicryl sutures. The subcutaneous tissue was closed with interrupted 2-0 Vicryl sutures. Another 10 Algerian hemovac was placed in the subcutaneous tissue. The skin was closed with running 2-0 nylon suture. Sterile dressings were place. The pt. was turned supine onto the stretcher, extubated and taken to the recovery room in stable condition. Condition Stable Disposition Still a Patient GASPER CALLOWAY MD Feb 05, 2025 15:29
[2025-02-05] MEDS ORDERED: HYDROmorphone HCL 2 MG/ML VL/or syr IV PRN (15:30)
[2025-02-05] MEDS ORDERED: MIDAZOLAM HCL 2MG/2ML 2ml VIAL (1mg/ml) IV PRN (15:30)
[2025-02-05] MEDS ORDERED: METOCLOPRAMIDE HCL 5MG/ml INJ 2ml VIAL IV PRN (15:30)
[2025-02-05] MEDS ORDERED: KETOROLAC TROMETH 30 MG/ML 1ML VIAL IV ONE (15:30)
[2025-02-05] MEDS ORDERED: hydrALAZINE HCL 20 MG/ML VL IV PRN (15:30)
--- NOTE | 2025-02-05 15:43 | DVHPNRES ---
Progress Note Date Seen: Feb 05, 2025 Resident Creating Document: ANGLE ANDREWS RESIDENT Medical Necessity Reason Pt with a Central, PICC or Fol: No Subjective Review of Systems Patient seen at bedside. Scheduled for surgery by spine surgery today. Mr. Issa, A 29-year-old male with a history of diabetes mellitus, dyslipidemia, hypertension, anxiety, and obesity presents with bilateral lower limb weakness and numbness persisting for two weeks. 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 He has recently abstained from alcohol and feels dehydrated but denies fever, shortness of breath, or other systemic symptoms. His review of systems is largely unremarkable except for the noted neurological complaints. He is currently taking metformin, Ozempic, losartan, atenolol, atorvastatin, and citalopram, with no known allergies and no relevant surgical or family history. He denies smoking, alcohol, and illicit drug use. Objective vital signs Vital Sign Date Time Temp Pulse Resp B/P (MAP) Pulse Ox O2 Delivery O2 Flow Rate FiO2 02/05/25 13:00 98.0 75 18 138/94 (109) 96 98.0 02/05/25 08:00 Room Air* 0 21 Total Intake and Output 02/04/25 02/04/25 02/05/25 15:00 23:00 07:00 Intake Total 2940 ml 1940 ml Output Total 2680 ml 3675 ml Balance 260 ml -1735 ml medications Current Medications Medications Dose Ordered Sig/Jennifer Route Start Time Stop Time Status Last Admin Dose Admin Pantoprazole Sodium 40 mg DAILY IV 02/02/25 10:02/04/25 08:47 40 MG Enoxaparin Sodium 60 mg DAILY SC 02/02/25 10:00 02/04/25 08:47 60 MG Citalopram Hydrobromide 40 mg DAILY PO 02/02/25 10:00 02/04/25 08:48 40 MG Dextrose/Sodium Chloride 1,000 ml @ 100 mls/hr Q10H IV 02/05/25 12:00 Ondansetron HCl 4 mg Q4HP PRN IV 02/05/25 12:00 Acetaminophen 650 mg Q6HP PRN PO 02/05/25 12:00 Acetaminophen/ Hydrocodone Bitart 1 tab Q6HP PRN PO 02/05/25 12:00 Morphine Sulfate 1 mg Q4HP PRN IV 02/05/25 12:00 Cyclobenzaprine HCl 10 mg TID PO 02/05/25 14:00 Docusate Sodium 100 mg BID PO 02/05/25 22:00 Cefazolin Sodium 50 ml @ 100 mls/hr Q8H IV 02/05/25 20:00 02/07/25 12:29 Nitroglycerin 0.4 mg Q5MINP PRN SL 02/05/25 12:00 Morphine Sulfate 2 mg Q30M PRN IV 02/05/25 12:00 Hydralazine HCl 2.5 mg Q20M PRN IV 02/05/25 15:30 02/05/25 16:31 Midazolam HCl 1 mg Q10M PRN IV 02/05/25 15:30 02/05/25 16:11 Hydromorphone HCl 0.5 mg Q10M PRN IV 02/05/25 15:30 02/05/25 16:11 Examination General Appearance: Alert, Oriented X3, Cooperative, No acute distress HEENT: Atraumatic, PERRLA, EOMI, Mucous membrane moist/pink Respiratory: Clear to auscultation, Normal air movement Cardiovascular: Regular rate, Normal S1, Normal S2, No murmurs, no chest wall tenderness Abdominal: Normal bowel sounds, Soft, No tenderness, No hepatospenomegaly, No masses Extremities: No clubbing, No cyanosis, No edema, Normal pulses, No tenderness/swelling Skin: No rashes, No breakdown, No significant lesion Neuro: 1/5 strength in bilateral lower limbs, no sensation in bilateral lower limbs Psych/Mental Status: Mental status NL, Mood NL laboratory and microbiology Laboratory Tests 02/05/25 06:30 02/04/25 07:00 Test 02/04/25 07:00 Range/Units Serum Glucose 113 H 74-106 mg/dL Microbiology Date/Time Source Procedure Growth Status 02/03/25 08:54 Stool Stool Culture - Preliminary Resulted 02/03/25 08:54 Stool Shiga Toxin I & II - Final Resulted Problem List/Assessment/Plan Problem List/Assessment/Plan Assessment and plan # Bilateral lower extremity paresthesias and weakness with unclear etiology; ? transverse myelitis Lumbar degenerative disc disease with a large paracentral disc protrusion L4-5 Severe spinal stenosis at L5 Severe neural foraminal stenosis at multiple levels: Scheduled for spine surgery # Progressive b/l lower limb weakeness with paresthesia : Differentials include transverse myelitis, Guillain-Royal syndrome, central canal stenosis, spinal injury, autoimmune disease and subacute combined degeneration: Lumbar MRI, Neurology input, Lumbar puncture depending on Neurology, PT, fall precautions. # [place] Statin myopathy: elevated CK: On home at low-dose statin 10 trend Ck , IV fluid to continue, BMP daily, correct electrolytes, check lipid panel, check further need of statin. # elevated CK, likely exertional: Differentials include myositis, myopathy: Check UDS, highly likely due to the statin # mild Transaminitis, likely due to NAFLD: Trend liver functions, lifestyle modification, weight loss # Obesity grade 3+, BMI 55.4 kg/m2: on Ozempic, continue weight loss and weight management, lifestyle modifications continue # recurrent chronic diarrhea: Could be due to metformin use, can hold, rule out B12 and electrolyte disturbances. Given psychiatric history, irritable bowel syndrome is differential, diagnosis of exclusion. # history of Prediabetes, HbA1c 5.1, likely improve # history of Dyslipidemia: Follow lipid panels # history of Essential hypertension: Home antihypertensives reviewed lisinopril and atenolol, Continue antihypertensives as needed, Target blood pressure in- hospital below 140/90, salt restricted DASH/cardiac diet. # generalized anxiety disorder/major depressive disorder: Continue home medications, on citalopram 40 mg daily. # history of lower back injury due to RTA in past: Back pain needed physiotherapy previously. # known left-sided sciatica # CT and x-ray reveals premature spinal osteoarthritis likely due to weight # Moderate lumbar degenerative disc disease: Conservative management, physical therapy, pain management # GI prophylaxis with PPI # DVT prophylaxis with Lovenox Diet: Cardiac Plan discussed with patient Plan discussed with Plan discussed with: Patient My Orders My Orders Orders - ANGLE ANDREWS RESIDENT Procedure Category Date Status Time Complete Blood Count LAB 02/06/25 Verified 04:00 Comprehensive LAB 02/06/25 Verified Metabolic Panel 04:00 Date of Service: Feb 05, 2025 Billing Provider: KACIE CARSON MD Common Visit Codes: [id number] INP/OBS CARE(HIGH) ANGLE ANDREWS RESIDENT Feb 05, 2025 15:43 KACIE CARSON MD Feb 06, 2025 06:35
[2025-02-05] MEDS: ACETAMINOPHEN IV 1000 MG/100ML (10MG/ML) IV ONE (15:45)
[2025-02-05] MEDS: ONDANSETRON HCL 4 MG/2 ML VIAL IV PRN (16:04)
--- NOTE | 2025-02-05 16:13 | DVHPN2 ---
Progress Note - Dictate Date Seen: Feb 05, 2025 Medical Necessity Reason Pt with a Central, PICC or Fol: No Subjective PT WITH SPINAL STENOSIS LE WEAKNESS OBESITY MAY REQUIRE SPINAL DECOMPRESSION vital signs Vital Sign Date Time Temp Pulse Resp B/P (MAP) Pulse Ox O2 Delivery O2 Flow Rate FiO2 02/05/25 13:00 98.0 75 18 138/94 (109) 96 98.0 02/05/25 08:00 Room Air* 0 21 Total Intake and Output 02/04/25 02/04/25 02/05/25 15:00 23:00 07:00 Intake Total 2940 ml 1940 ml Output Total 2680 ml 3675 ml Balance 260 ml -1735 ml medications Current Medications Medications Dose Ordered Sig/Jennifer Route Start Time Stop Time Status Last Admin Dose Admin Pantoprazole Sodium 40 mg DAILY IV 02/02/25 10:00 02/04/25 08:47 40 MG Enoxaparin Sodium 60 mg DAILY SC 02/02/25 10:00 02/04/25 08:47 60 MG Citalopram Hydrobromide 40 mg DAILY PO 02/02/25 10:00 02/04/25 08:48 40 MG Dextrose/Sodium Chloride 1,000 ml @ 100 mls/hr Q10H IV 02/05/25 12:00 Ondansetron HCl 4 mg Q4HP PRN IV 02/05/25 12:00 Acetaminophen 650 mg Q6HP PRN PO 02/05/25 12:00 Acetaminophen/ Hydrocodone Bitart 1 tab Q6HP PRN PO 02/05/25 12:00 Morphine Sulfate 1 mg Q4HP PRN IV 02/05/25 12:00 Cyclobenzaprine HCl 10 mg TID PO 02/05/25 14:00 Docusate Sodium 100 mg BID PO 02/05/25 22:00 Cefazolin Sodium 50 ml @ 100 mls/hr Q8H IV 02/05/25 20:00 02/07/25 12:29 Nitroglycerin 0.4 mg Q5MINP PRN SL 02/05/25 12:00 Morphine Sulfate 2 mg Q30M PRN IV 02/05/25 12:00 Hydralazine HCl 2.5 mg Q20M PRN IV 02/05/25 15:30 02/05/25 16:31 laboratory and microbiology Laboratory Tests 02/05/25 06:30 02/04/25 07:00 Test 02/04/25 07:00 Range/Units Serum Glucose 113 H 74-106 mg/dL Problem List SPINAL STENOSIS LE WEAKNESS OBESITY MAY REQUIRE SPINAL DECOMPRESSION Assessment/Plan MAY PROCEED WITH SURGERY ECHO EF >55% ASA II DVT PROPHYLAXIS REVIEWED LABS: RBC, MCV, AND MCH ARE NORMAL Plan discussed with: Patient BENNETT GUEVARA MD Feb 05, 2025 16:13
--- NOTE | 2025-02-05 17:29 | DVH ---
C-ARM FLUOROSCOPY: PROCEDURE: C-arm fluoroscopy up to 60 minutes, surgery at L4-5 no images of that surgery received. FLUOROSCOPY TIME: 120.7 seconds Air Kerma: 115.52 mgy FINDINGS: Spot intraoperative C arm radiographs demonstrating only 1 image of surgery on lumbar spine which was the dose summary sheet. IMPRESSION: 1. Please refer to surgical report for detailed findings.
--- NOTE | 2025-02-05 17:32 | DVH ---
CLINICAL INDICATION: L4-L5 TECHNIQUE: 10 radiographic views of the 9 intraoperative images of surgery at L4-5. were received. Summary dose sheet was also received. Comparison: None FINDINGS/IMPRESSION: Total fluoro time 1:20 a.m. 8.7 seconds Cumulative dose: 115.52 mGy Surgical details Refer to surgical summary.
[2025-02-05] MEDS: D5W/SOD CHLO 0.9% 1,000 ML IV SCH (18:06)
[2025-02-05] MEDS: ceFAZolin 1GM/50ML 50 ML IV SCH (19:59)
[2025-02-05] MEDS: HYDROcodone-ACET 10/325MG TAB PO PRN (20:00)
[2025-02-05] MEDS: DOCUSATE SOD 100 MG CAP PO SCH (20:59)
[2025-02-06] VITALS (8 sets, daily range): BP systolic 107–113; BP diastolic 75–87; PULSE 74–108; RESP 18; TEMP 97.9–98.5; O2SAT 95–99
--- NOTE | 2025-02-06 00:19 | DVHPN2 ---
Progress Note - Dictate Date Seen: Feb 05, 2025 Medical Necessity Reason Pt with a Central, PICC or Fol: No Subjective Mr. Issa is a 29 years old right-handed gentleman with a history of hypertension, diabetes, dyslipidemia, anxiety, obesity, he came to the [facility] on 02/01[facility]2025 with a chief complaint of numbness weakness in the lower extremities, I have seen examined the patient, I have talked to his nurse,, he is alert and fully oriented, no new complaints He went through lumbar spine laminectomy on 02/05/2025 He reports doing fine, alert and fully oriented He reports sensory loss in the lower extremity is much better CBC, 02/01/2025: Okay ESR, 02/01/2025: 4 BMP 02/01/2025: Unremarkable TBI/AST/ALT/AP, 02/01/2025: 0.2/42/44/66 CPK, 02/01/2025: 501, 512, 443 Vitamin B12, 02/01/2025: 334 TSH, 02/22/2020 5:3.09 Ultrasound, 02/01/2025: No gallstones or acute cholecystitis. Hepatic steatosis and hepatomegaly Leg venous Doppler study, 02/01/2025: No right or left femoropopliteal venous thrombosis Chest x-ray, 02/01/2025: No acute disease MRI brain wwo, 02/02/2025: 1. No acute or recent infarct. 2. No enhancing intracranial lesion MRI C-spine, 02/02/2025: 1. No significant MR abnormality of the cervical cord. No significant cervical disc herniation or spinal canal or foraminal narrowing. 2. Prominent right lateral T1 and T2 uncovertebral spurring and/or disc extrusion extending into bilateral inferior foramina contributing to severe right T1-2, T2-T3 foraminal narrowing MRI T-spine, 02/02/2025: 1. Question abnormal cord signal which is indeterminate for cord edema versus demyelination at T10-1. 2. Appearance of severe spinal canal narrowing with possible cord impingement at T9-10 and T10-1 3. Multilevel right lateral recess to foraminal disc extrusions with effacement of the right lateral recesses and associated severe foraminal narrowing at T9-10 and T10-11. 4. Superimposed left-sided lateral recess to foraminal disc protrusion/ extrusion at T4-5, T5-6, T8-9, T9-10. vital signs Vital Sign Date Time Temp Pulse Resp B/P (MAP) Pulse Ox O2 Delivery O2 Flow Rate FiO2 02/05/25 21:00 98.0 94 17 126/78 (94) 99 98.0 02/05/25 20:00 Room Air* 0 21 Total Intake and Output 02/05/25 02/05/25 02/06/25 15:00 23:00 07:00 Intake Total 280 ml 500 ml Output Total 200 ml Balance 280 ml 300 ml medications Current Medications Medications Dose Ordered Sig/Jennifer Route Start Time Stop Time Status Last Admin Dose Admin Pantoprazole Sodium 40 mg DAILY IV 02/02/25 10:00 02/04/25 08:47 40 MG Enoxaparin Sodium 60 mg DAILY SC 02/02/25 10:00 02/04/25 08:47 60 MG Citalopram Hydrobromide 40 mg DAILY PO 02/02/25 10:00 02/04/25 08:48 40 MG Dextrose/Sodium Chloride 1,000 ml @ 100 mls/hr Q10H IV 02/05/25 12:00 02/05/25 18:06 100 MLS/HR Ondansetron HCl 4 mg Q4HP PRN IV 02/05/25 12:00 Acetaminophen 650 mg Q6HP PRN PO 02/05/25 12:00 Acetaminophen/ Hydrocodone Bitart 1 tab Q6HP PRN PO 02/05/25 12:00 02/05/25 20:00 1 TAB Morphine Sulfate 1 mg Q4HP PRN IV 02/05/25 12:00 Cyclobenzaprine HCl 10 mg TID PO 02/05/25 14:00 02/05/25 20:59 10 MG Docusate Sodium 100 mg BID PO 02/05/25 22:00 02/05/25 20:59 100 MG Cefazolin Sodium 50 ml @ 100 mls/hr Q8H IV 02/05/25 20:00 02/07/25 12:29 02/05/25 19:59 100 MLS/HR Nitroglycerin 0.4 mg Q5MINP PRN SL 02/05/25 12:00 Morphine Sulfate 2 mg Q30M PRN IV 02/05/25 12:00 objective General: the patient is well developed and nourished. No acute distress. MENTAL STATUS: Awake and alert. Oriented to person, place, time and general circumstances. Able to give personal history SPEECH, LANGUAGE, HIGHER CORTICAL FUNCTION: no aphasia or dysathria. CRANIAL NERVES: Pupils are equal, round and reactive. EOMs full and conjugate. No nystagmus. Facial sensation intact in all three divisions bilaterally. Mandibular strength intact. Facial muscles symmetrical and strength intact. Tongue midline. No fasciculations or atrophy. SENSATION: Sensation to touch and pinprick is mildly diminished below bilateral T10-T11 dermatomes MOTOR: Normal tone in the upper and lower extremity. Normal muscle bulk. No fasciculations. No abnormal movements or posturing. Muscle strength of the major groups in the upper extremities is 5/5. Muscle strength of the major groups in the lower extremities is 4/5, weaker in the bilateral pelvic girdle muscles. REFLEXES: Deep tendon reflexes are symmetrical. No pathological reflexes. CEREBELLAR/COORDINATION: Finger to nose is normal bilaterally. GAIT/STATION: deferred laboratory and microbiology Laboratory Tests 02/05/25 06:30 02/04/25 07:00 Test 02/04/25 07:00 Range/Units Serum Glucose 113 H 74-106 mg/dL Problem List Paresthesia and weakness in the lower extremities, etiology unclear Transverse myelitis Multiple sclerosis Polymyositis, less likely Lumbar spine stenosis, status post laminectomy Assessment/Plan Monitoring Supportive treatment DVT prophylaxis GI prophylaxis Up to chair Physical therapy More recommendation per clinical course This medical document was created using an electronic medical record system with [employer] dictation system. Although this document has been carefully reviewed, there may still be some phonetic and typographical errors. These areas are purely typographical due to imperfections of the software programs, and do not reflect any compromise in the patient's medical care. Prognosis poor Plan discussed with: Patient, Other MADDIE AUSTIN MD Feb 06, 2025 00:19
[2025-02-06 07:12] LABS: Hematocrit 40.0 % (41.0-53.0); Hemoglobin 13.8 g/dL (13.5-17.5); Mean Corpuscular Hemoglobin 30.2 pg (28.0-32.0); Mean Corpuscular Volume 87.3 fL (80.0-100.0); Nucleated Red Blood Cells % 0.1 %
[2025-02-06 07:31] LABS: Alanine Aminotransferase 30 U/L (7-40); Albumin 4.1 g/dL (3.2-4.8); Alkaline Phosphatase 50 U/L (46-116); Anion Gap 12 (5-15); BUN/Creatinine Ratio 19.4 (10.0-20.0); Blood Urea Nitrogen 14 mg/dL (9-23); Calcium 8.1 mg/dL (8.7-10.4); Carbon Dioxide 25 mmol/L (20-31); Chloride 105 mmol/L (98-107); Glucose 80 mg/dL (74-106); Potassium 3.8 mmol/L (3.5-5.1); Sodium 142 mmol/L (136-145); Total Protein 6.7 g/dL (5.7-8.2)
[2025-02-06 07:32] LABS: Bilirubin, Total 0.6 mg/dL (0.2-1.0)
--- NOTE | 2025-02-06 10:42 | DVHPN2 ---
Progress Note - Dictate Date Seen: Feb 06, 2025 Medical Necessity Reason Pt with a Central, PICC or Fol: No Subjective Mr. Issa is a 29 years old right-handed gentleman with a history of hypertension, diabetes, dyslipidemia, anxiety, obesity, he came to the [facility] on 02/01/2025 with a chief complaint of numbness weakness in the lower extremities He went through lumbar spine laminectomy on 02/05/2025 I have seen examined the patient, I have talked to his nurse,, he is alert and fully oriented, no new complaints He reports doing fine, able to walk for 30 seconds with his walker CBC, 02/01/2025: Okay ESR, 02/01/2025: 4 BMP 02/01/2025: Unremarkable TBI/AST/ALT/AP, 02/01/2025: 0.2/42/44/66 CPK, 02/01/2025: 501, 512, 443 Vitamin B12, 02/01/2025: 334 TSH, 02/22/2020 5:3.09 Ultrasound, 02/01/2025: No gallstones or acute cholecystitis. Hepatic steatosis and hepatomegaly Leg venous Doppler study, 02/01/2025: No right or left femoropopliteal venous thrombosis Chest x-ray, 02/01/2025: No acute disease MRI brain wwo, 02/02/2025: 1. No acute or recent infarct. 2. No enhancing intracranial lesion MRI C-spine, 02/02/2025: 1. No significant MR abnormality of the cervical cord. No significant cervical disc herniation or spinal canal or foraminal narrowing. 2. Prominent right lateral T1 and T2 uncovertebral spurring and/or disc extrusion extending into bilateral inferior foramina contributing to severe right T1-2, T2-T3 foraminal narrowing MRI T-spine, 02/02/2025: 1. Question abnormal cord signal which is indeterminate for cord edema versus demyelination at T10-1. 2. Appearance of severe spinal canal narrowing with possible cord impingement at T9-10 and T10-1 3. Multilevel right lateral recess to foraminal disc extrusions with effacement of the right lateral recesses and associated severe foraminal narrowing at T9-10 and T10-11. 4. Superimposed left-sided lateral recess to foraminal disc protrusion/ extrusion at T4-5, T5-6, T8-9, T9-10. vital signs Vital Sign Date Time Temp Pulse Resp B/P (MAP) Pulse Ox O2 Delivery O2 Flow Rate FiO2 02/06/25 05:00 97.9 83 18 112/79 (90) 96 97.9 02/05/25 20:00 Room Air* 0 21 Total Intake and Output 02/05/25 02/05/25 02/06/25 15:00 23:00 07:00 Intake Total 280 ml 500 ml 930 ml Output Total 200 ml Balance 280 ml 300 ml 930 ml medications Current Medications Medications Dose Ordered Sig/Jennifer Route Start Time Stop Time Status Last Admin Dose Admin Pantoprazole Sodium 40 mg DAILY IV 02/02/25 10:00 02/04/25 08:47 40 MG Enoxaparin Sodium 60 mg DAILY SC 02/02/25 10:00 02/04/25 08:47 60 MG Citalopram Hydrobromide 40 mg DAILY PO 02/02/25 10:00 02/04/25 08:48 40 MG Dextrose/Sodium Chloride 1,000 ml @ 100 mls/hr Q10H IV 02/05/25 12:00 02/05/25 18:06 100 MLS/HR Ondansetron HCl 4 mg Q4HP PRN IV 02/05/25 12:00 Acetaminophen 650 mg Q6HP PRN PO 02/05/25 12:00 Acetaminophen/ Hydrocodone Bitart 1 tab Q6HP PRN PO 02/05/25 12:00 02/05/25 20:00 1 TAB Morphine Sulfate 1 mg Q4HP PRN IV 02/05/25 12:00 Cyclobenzaprine HCl 10 mg TID PO 02/05/25 14:00 02/06/25 05:00 10 MG Docusate Sodium 100 mg BID PO 02/05/25 22:00 02/05/25 20:59 100 MG Cefazolin Sodium 50 ml @ 100 mls/hr Q8H IV 02/05/25 20:00 02/07/25 12:29 02/06/25 05:01 100 MLS/HR Nitroglycerin 0.4 mg Q5MINP PRN SL 02/05/25 12:00 Morphine Sulfate 2 mg Q30M PRN IV 02/05/25 12:00 objective General: the patient is well developed and nourished. No acute distress. MENTAL STATUS: Awake and alert. Oriented to person, place, time and general circumstances. Able to give personal history SPEECH, LANGUAGE, HIGHER CORTICAL FUNCTION: no aphasia or dysathria. CRANIAL NERVES: Pupils are equal, round and reactive. EOMs full and conjugate. No nystagmus. Facial sensation intact in all three divisions bilaterally. Mandibular strength intact. Facial muscles symmetrical and strength intact. Tongue midline. No fasciculations or atrophy. SENSATION: Sensation to touch and pinprick is mildly diminished below bilateral T10-T11 dermatomes MOTOR: Normal tone in the upper and lower extremity. Normal muscle bulk. No fasciculations. No abnormal movements or posturing. Muscle strength of the major groups in the upper extremities is 5/5. Muscle strength of the major groups in the lower extremities is 4/5, weaker in the bilateral pelvic girdle muscles. REFLEXES: Deep tendon reflexes are symmetrical. No pathological reflexes. CEREBELLAR/COORDINATION: Finger to nose is normal bilaterally. GAIT/STATION: deferred laboratory and microbiology Laboratory Tests 02/06/25 06:19 Test 02/06/25 06:19 Range/Units Serum Glucose 80 74-106 mg/dL Problem List Paresthesia and weakness in the lower extremities, etiology unclear Transverse myelitis Multiple sclerosis Polymyositis, less likely Lumbar spine stenosis, status post laminectomy Assessment/Plan Monitoring Supportive treatment DVT prophylaxis GI prophylaxis Up to chair Physical therapy More recommendation per clinical course This medical document was created using an electronic medical record system with [employer] dictation system. Although this document has been carefully reviewed, there may still be some phonetic and typographical errors. These areas are purely typographical due to imperfections of the software programs, and do not reflect any compromise in the patient's medical care. Prognosis poor Plan discussed with: Patient, Other MADDIE AUSTIN MD Feb 06, 2025 10:42
--- NOTE | 2025-02-06 14:52 | DVHPNRES ---
Progress Note Date Seen: Feb 06, 2025 Resident Creating Document: ANGLE ANDREWS RESIDENT Medical Necessity Reason Pt with a Central, PICC or Fol: No Subjective Review of Systems Patient seen at bedside. No new complaints. Spine surgery yesterday. Waiting for spine and PT recommendations. Mr. Issa, A 29-year-old male with a history of diabetes mellitus, dyslipidemia, hypertension, anxiety, and obesity presents with bilateral lower limb weakness and numbness persisting for two weeks. 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 He has recently abstained from alcohol and feels dehydrated but denies fever, shortness of breath, or other systemic symptoms. His review of systems is largely unremarkable except for the noted neurological complaints. He is currently taking metformin, Ozempic, losartan, atenolol, atorvastatin, and citalopram, with no known allergies and no relevant surgical or family history. He denies smoking, alcohol, and illicit drug use. Objective vital signs Vital Sign Date Time Temp Pulse Resp B/P (MAP) Pulse Ox O2 Delivery O2 Flow Rate FiO2 02/06/25 13:00 98.5 100 18 112/77 (89) 95 98.5 02/05/25 20:00 Room Air* 0 21 Total Intake and Output 02/05/25 02/05/25 02/06/25 15:00 23:00 07:00 Intake Total 280 ml 500 ml 930 ml Output Total 200 ml Balance 280 ml 300 ml 930 ml medications Current Medications Medications Dose Ordered Sig/Jennifer Route Start Time Stop Time Status Last Admin Dose Admin Pantoprazole Sodium 40 mg DAILY IV 02/02/25 10:00 02/04/25 08:47 40 MG Enoxaparin Sodium 60 mg DAILY SC 02/02/25 10:00 02/06/25 10:00 60 MG Citalopram Hydrobromide 40 mg DAILY PO 02/02/25 10:00 02/06/25 10:00 40 MG Dextrose/Sodium Chloride 1,000 ml @ 100 mls/hr Q10H IV 02/05/25 12:00 02/06/25 08:00 100 MLS/HR Ondansetron HCl 4 mg Q4HP PRN IV 02/05/25 12:00 Acetaminophen 650 mg Q6HP PRN PO 02/05/25 12:00 Acetaminophen/ Hydrocodone Bitart 1 tab Q6HP PRN PO 02/05/25 12:00 02/05/25 20:00 1 TAB Morphine Sulfate 1 mg Q4HP PRN IV 02/05/25 12:00 Cyclobenzaprine HCl 10 mg TID PO 02/05/25 14:00 02/06/25 05:00 10 MG Docusate Sodium 100 mg BID PO 02/05/25 22:00 02/06/25 10:00 100 MG Cefazolin Sodium 50 ml @ 100 mls/hr Q8H IV 02/05/25 20:00 02/07/25 12:29 02/06/25 11:42 100 MLS/HR Nitroglycerin 0.4 mg Q5MINP PRN SL 02/05/25 12:00 Morphine Sulfate 2 mg Q30M PRN IV 02/05/25 12:00 Examination General Appearance: Alert, Oriented X3, Cooperative, No acute distress HEENT: Atraumatic, PERRLA, EOMI, Mucous membrane moist/pink Respiratory: Clear to auscultation, Normal air movement Cardiovascular: Regular rate, Normal S1, Normal S2, No murmurs, no chest wall tenderness Abdominal: Normal bowel sounds, Soft, No tenderness, No hepatospenomegaly, No masses Extremities: No clubbing, No cyanosis, No edema, Normal pulses, No tenderness/swelling Skin: No rashes, No breakdown, No significant lesion Neuro: 1/5 strength in bilateral lower limbs, no sensation in bilateral lower limbs Psych/Mental Status: Mental status NL, Mood NL laboratory and microbiology Laboratory Tests 02/06/25 06:19 Test 02/06/25 06:19 Range/Units Serum Glucose 80 74-106 mg/dL Microbiology Date/Time Source Procedure Growth Status 02/03/25 08:54 Stool Stool Culture - Final Complete 02/03/25 08:54 Stool Shiga Toxin I & II - Final Complete Problem List/Assessment/Plan Problem List/Assessment/Plan Assessment and plan # Bilateral lower extremity paresthesias and weakness with unclear etiology; ? transverse myelitis Lumbar degenerative disc disease with a large paracentral disc protrusion L4-5 Severe spinal stenosis at L5 Severe neural foraminal stenosis at multiple levels: s/p spine Sx # Progressive b/l lower limb weakeness with paresthesia : Differentials include transverse myelitis, Guillain-Gipsy syndrome, central canal stenosis, spinal injury, autoimmune disease and subacute combined degeneration: Lumbar MRI, Neurology input, Lumbar puncture depending on Neurology, PT, fall precautions. # [place] Statin myopathy: elevated CK: On home at low-dose statin 10 trend Ck , IV fluid to continue, BMP daily, correct electrolytes, check lipid panel, check further need of statin. # elevated CK, likely exertional: Differentials include myositis, myopathy: Check UDS, highly likely due to the statin # mild Transaminitis, likely due to NAFLD: Trend liver functions, lifestyle modification, weight loss # Obesity grade 3+, BMI 55.4 kg/m2: on Ozempic, continue weight loss and weight management, lifestyle modifications continue # recurrent chronic diarrhea: Could be due to metformin use, can hold, rule out B12 and electrolyte disturbances. Given psychiatric history, irritable bowel syndrome is differential, diagnosis of exclusion. # history of Prediabetes, HbA1c 5.1, likely improve # history of Dyslipidemia: Follow lipid panels # history of Essential hypertension: Home antihypertensives reviewed lisinopril and atenolol, Continue antihypertensives as needed, Target blood pressure in- hospital below 140/90, salt restricted DASH/cardiac diet. # generalized anxiety disorder/major depressive disorder: Continue home medications, on citalopram 40 mg daily. # history of lower back injury due to RTA in past: Back pain needed physiotherapy previously. # known left-sided sciatica # CT and x-ray reveals premature spinal osteoarthritis likely due to weight # Moderate lumbar degenerative disc disease: Conservative management, physical therapy, pain management # GI prophylaxis with PPI # DVT prophylaxis with Lovenox Diet: Cardiac Plan discussed with patient Plan discussed with Plan discussed with: Patient My Orders My Orders Orders - ANGLE ANDREWS Procedure Category Date Status Time * Laboratory Animal Facility Supervisor CONS 02/06/25 Transmitted Consult Complete Blood Count LAB 02/07/25 Verified 04:00 Comprehensive LAB 02/07/25 Verified Metabolic Panel 04:00 Date of Service: Feb 06, 2025 Billing Provider: ANGLE ANDREWS Common Visit Codes: [id number] INP/OBS CARE(HIGH) ANGLE ANDREWS Feb 06, 2025 14:51 KACIE CARSON MD Feb 06, 2025 16:21
--- NOTE | 2025-02-06 15:43 | DVHPN2 ---
Progress Note - Dictate Date Seen: Feb 06, 2025 Medical Necessity Reason Pt with a Central, PICC or Fol: No Subjective PT WITH SPINAL STENOSIS LE WEAKNESS OBESITY MAY REQUIRE SPINAL DECOMPRESSION vital signs Vital Sign Date Time Temp Pulse Resp B/P (MAP) Pulse Ox O2 Delivery O2 Flow Rate FiO2 02/06/25 13:00 98.5 100 18 112/77 (89) 95 98.5 02/05/25 20:00 Room Air* 0 21 Total Intake and Output 02/05/25 02/05/25 02/06/25 15:00 23:00 07:00 Intake Total 280 ml 500 ml 930 ml Output Total 200 ml Balance 280 ml 300 ml 930 ml medications Current Medications Medications Dose Ordered Sig/Jennifer Route Start Time Stop Time Status Last Admin Dose Admin Pantoprazole Sodium 40 mg DAILY IV 02/02/25 10:00 02/04/25 08:47 40 MG Enoxaparin Sodium 60 mg DAILY SC 02/02/25 10:00 02/06/25 10:00 60 MG Citalopram Hydrobromide 40 mg DAILY PO 02/02/25 10:00 02/06/25 10:00 40 MG Dextrose/Sodium Chloride 1,000 ml @ 100 mls/hr Q10H IV 02/05/25 12:00 02/06/25 08:00 100 MLS/HR Ondansetron HCl 4 mg Q4HP PRN IV 02/05/25 12:00 Acetaminophen 650 mg Q6HP PRN PO 02/05/25 12:00 Acetaminophen/ Hydrocodone Bitart 1 tab Q6HP PRN PO 02/05/25 12:00 02/05/25 20:00 1 TAB Morphine Sulfate 1 mg Q4HP PRN IV 02/05/25 12:00 Cyclobenzaprine HCl 10 mg TID PO 02/05/25 14:00 02/06/25 05:00 10 MG Docusate Sodium 100 mg BID PO 02/05/25 22:00 02/06/25 10:00 100 MG Cefazolin Sodium 50 ml @ 100 mls/hr Q8H IV 02/05/25 20:00 02/07/25 12:29 02/06/25 11:42 100 MLS/HR Nitroglycerin 0.4 mg Q5MINP PRN SL 02/05/25 12:00 Morphine Sulfate 2 mg Q30M PRN IV 02/05/25 12:00 laboratory and microbiology Laboratory Tests 02/06/25 06:19 Test 02/06/25 06:19 Range/Units Serum Glucose 80 74-106 mg/dL Problem List SPINAL STENOSIS LE WEAKNESS OBESITY MAY REQUIRE SPINAL DECOMPRESSION Assessment/Plan MAY PROCEED WITH SURGERY ECHO EF >55% ASA II DVT PROPHYLAXIS HERNIATED LUMBER DISK S/P LAMINECTOMY REVIEWED LAS: WBC, RBC, AND HGB ARE NORMAL Plan discussed with: Patient BENNETT GUEVARA MD Feb 06, 2025 15:43
[2025-02-07] VITALS (7 sets, daily range): BP systolic 116–156; BP diastolic 77–95; PULSE 87–111; RESP 17–20; TEMP 97.8–99.4; O2SAT 96–98
[2025-02-07] MEDS: LIDOCAINE 4MG/ML IV SOLN 500 ML IV ONE (01:47)
[2025-02-07] MEDS: ACETAMINOPHEN IV 100 ML IV ONE (01:48)
[2025-02-07] MEDS: SUCCINYLCHOLINE CHLORIDE 20 MG/ML 10ML VIAL IV ONE (01:48)
[2025-02-07] MEDS: MAGNESIUM SULFATE 1GM/100ML 100 ML IV ONE (01:48)
[2025-02-07 05:46] LABS: Hematocrit 40.3 % (41.0-53.0); Hemoglobin 13.8 g/dL (13.5-17.5); Mean Corpuscular Hemoglobin 30.0 pg (28.0-32.0); Mean Corpuscular Volume 87.9 fL (80.0-100.0); Nucleated Red Blood Cells % 0.1 %
[2025-02-07 06:04] LABS: Alanine Aminotransferase 27 U/L (7-40); Alkaline Phosphatase 51 U/L (46-116); Anion Gap 11 (5-15); BUN/Creatinine Ratio 12.9 (10.0-20.0); Carbon Dioxide 26 mmol/L (20-31); Chloride 104 mmol/L (98-107); Glucose 106 mg/dL (74-106); Potassium 3.6 mmol/L (3.5-5.1); Sodium 141 mmol/L (136-145); Total Protein 6.8 g/dL (5.7-8.2)
[2025-02-07 06:05] LABS: Albumin 4.1 g/dL (3.2-4.8); Bilirubin, Total 0.9 mg/dL (0.2-1.0)
[2025-02-07 06:11] LABS: Blood Urea Nitrogen 8 mg/dL (9-23); Calcium 8.6 mg/dL (8.7-10.4)
--- NOTE | 2025-02-07 08:11 | DVHPN2 ---
Progress Note - Dictate Date Seen: Feb 07, 2025 Medical Necessity Reason Pt with a Central, PICC or Fol: No Subjective PT WITH SPINAL STENOSIS LE WEAKNESS OBESITY MAY REQUIRE SPINAL DECOMPRESSION vital signs Vital Sign Date Time Temp Pulse Resp B/P (MAP) Pulse Ox O2 Delivery O2 Flow Rate FiO2 02/07/25 05:00 97.8 92 17 156/89 (111) 97 97.8 02/06/25 19:50 Room Air* 0 21 Total Intake and Output 02/06/25 02/06/25 02/07/25 15:00 23:00 07:00 Intake Total 720 ml 1130 ml 1050 ml Output Total 2275 ml 1100 ml Balance 720 ml -1145 ml -50 ml medications Current Medications Medications Dose Ordered Sig/Jennifer Route Start Time Stop Time Status Last Admin Dose Admin Pantoprazole Sodium 40 mg DAILY IV 02/02/25 10:00 02/04/25 08:47 40 MG Enoxaparin Sodium 60 mg DAILY SC 02/02/25 10:00 02/06/25 10:00 60 MG Citalopram Hydrobromide 40 mg DAILY PO 02/02/25 10:00 02/06/25 10:00 40 MG Dextrose/Sodium Chloride 1,000 ml @ 100 mls/hr Q10H IV 02/05/25 12:00 02/07/25 05:41 100 MLS/HR Ondansetron HCl 4 mg Q4HP PRN IV 02/05/25 12:00 Acetaminophen 650 mg Q6HP PRN PO 02/05/25 12:00 Acetaminophen/ Hydrocodone Bitart 1 tab Q6HP PRN PO 02/05/25 12:00 02/07/25 03:06 1 TAB Morphine Sulfate 1 mg Q4HP PRN IV 02/05/25 12:00 Cyclobenzaprine HCl 10 mg TID PO 02/05/25 14:00 02/07/25 05:41 10 MG Docusate Sodium 100 mg BID PO 02/05/25 22:00 02/06/25 21:11 100 MG Cefazolin Sodium 50 ml @ 100 mls/hr Q8H IV 02/05/25 20:00 02/07/25 12:29 02/07/25 05:41 100 MLS/HR Nitroglycerin 0.4 mg Q5MINP PRN SL 02/05/25 12:00 Morphine Sulfate 2 mg Q30M PRN IV 02/05/25 12:00 laboratory and microbiology Laboratory Tests 02/07/25 05:04 Test 02/07/25 05:04 Range/Units Serum Glucose 106 74-106 mg/dL Problem List SPINAL STENOSIS LE WEAKNESS OBESITY MAY REQUIRE SPINAL DECOMPRESSION Assessment/Plan MAY PROCEED WITH SURGERY ECHO EF >55% ASA II DVT PROPHYLAXIS HERNIATED LUMBER DISK S/P LAMINECTOMY Plan discussed with: Patient BENNETT GUEVARA MD Feb 07, 2025 08:11
--- NOTE | 2025-02-07 14:00 | DVHPNRES ---
Progress Note Date Seen: Feb 07, 2025 Resident Creating Document: ANGLE ANDREWS RESIDENT Medical Necessity Reason Pt with a Central, PICC or Fol: No Subjective Review of Systems Patient seen at bedside. Status post spine surgery. No new complaints. Mr. Issa, A 29-year-old male with a history of diabetes mellitus, dyslipidemia, hypertension, anxiety, and obesity presents with bilateral lower limb weakness and numbness persisting for two weeks. 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 He has recently abstained from alcohol and feels dehydrated but denies fever, shortness of breath, or other systemic symptoms. His review of systems is largely unremarkable except for the noted neurological complaints. He is currently taking metformin, Ozempic, losartan, atenolol, atorvastatin, and citalopram, with no known allergies and no relevant surgical or family history. He denies smoking, alcohol, and illicit drug use. Objective vital signs Vital Sign Date Time Temp Pulse Resp B/P (MAP) Pulse Ox O2 Delivery O2 Flow Rate FiO2 02/07/25 09:00 98.6 87 20 133/88 (103) 98 98.6 02/06/25 19:50 Room Air* 0 21 Total Intake and Output 02/06/25 02/06/25 02/07/25 15:00 23:00 07:00 Intake Total 720 ml 1130 ml 1050 ml Output Total 2275 ml 1100 ml Balance 720 ml -1145 ml -50 ml medications Current Medications Medications Dose Ordered Sig/Jennifer Route Start Time Stop Time Status Last Admin Dose Admin Pantoprazole Sodium 40 mg DAILY IV 02/02/25 10:02/07/25 10:00 40 MG Enoxaparin Sodium 60 mg DAILY SC 02/02/25 10:00 02/07/25 10:00 60 MG Citalopram Hydrobromide 40 mg DAILY PO 02/02/25 10:00 02/07/25 10:00 40 MG Dextrose/Sodium Chloride 1,000 ml @ 100 mls/hr Q10H IV 02/05/25 12:00 02/07/25 13:17 100 MLS/HR Ondansetron HCl 4 mg Q4HP PRN IV 02/05/25 12:00 Acetaminophen 650 mg Q6HP PRN PO 02/05/25 12:00 Acetaminophen/ Hydrocodone Bitart 1 tab Q6HP PRN PO 02/05/25 12:00 02/07/25 10:50 1 TAB Morphine Sulfate 1 mg Q4HP PRN IV 02/05/25 12:00 Cyclobenzaprine HCl 10 mg TID PO 02/05/25 14:00 02/07/25 13:17 10 MG Docusate Sodium 100 mg BID PO 02/05/25 22:00 02/07/25 10:00 100 MG Nitroglycerin 0.4 mg Q5MINP PRN SL 02/05/25 12:00 Morphine Sulfate 2 mg Q30M PRN IV 02/05/25 12:00 Examination General Appearance: Alert, Oriented X3, Cooperative, No acute distress HEENT: Atraumatic, PERRLA, EOMI, Mucous membrane moist/pink Respiratory: Clear to auscultation, Normal air movement Cardiovascular: Regular rate, Normal S1, Normal S2, No murmurs, no chest wall tenderness Abdominal: Normal bowel sounds, Soft, No tenderness, No hepatospenomegaly, No masses Extremities: No clubbing, No cyanosis, No edema, Normal pulses, No tenderness/swelling Skin: No rashes, No breakdown, No significant lesion Neuro: 1/5 strength in bilateral lower limbs, no sensation in bilateral lower limbs Psych/Mental Status: Mental status NL, Mood NL laboratory and microbiology Laboratory Tests 02/07/25 05:04 Test 02/07/25 05:04 Range/Units Serum Glucose 106 74-106 mg/dL Microbiology Date/Time Source Procedure Growth Status 02/03/25 08:54 Stool Stool Culture - Final Complete 02/03/25 08:54 Stool Shiga Toxin I & II - Final Complete Problem List/Assessment/Plan Problem List/Assessment/Plan Assessment and plan # Bilateral lower extremity paresthesias and weakness with unclear etiology; ? transverse myelitis Lumbar degenerative disc disease with a large paracentral disc protrusion L4-5 Severe spinal stenosis at L5 Severe neural foraminal stenosis at multiple levels: s/p spine Sx # Progressive b/l lower limb weakeness with paresthesia : Differentials include transverse myelitis, Guillain-[place] syndrome, central canal stenosis, spinal injury, autoimmune disease and subacute combined degeneration: Lumbar MRI, Neurology input, Lumbar puncture depending on Neurology, PT, fall precautions. # Dorota Statin myopathy: elevated CK: On home at low-dose statin 10 trend Ck , IV fluid to continue, BMP daily, correct electrolytes, check lipid panel, check further need of statin. # elevated CK, likely exertional: Differentials include myositis, myopathy: Check UDS, highly likely due to the statin # mild Transaminitis, likely due to NAFLD: Trend liver functions, lifestyle modification, weight loss # Obesity grade 3+, BMI 55.4 kg/m2: on Ozempic, continue weight loss and weight management, lifestyle modifications continue # recurrent chronic diarrhea: Could be due to metformin use, can hold, rule out B12 and electrolyte disturbances. Given psychiatric history, irritable bowel syndrome is differential, diagnosis of exclusion. # history of Prediabetes, HbA1c 5.1, likely improve # history of Dyslipidemia: Follow lipid panels # history of Essential hypertension: Home antihypertensives reviewed lisinopril and atenolol, Continue antihypertensives as needed, Target blood pressure in- hospital below 140/90, salt restricted DASH/cardiac diet. # generalized anxiety disorder/major depressive disorder: Continue home medications, on citalopram 40 mg daily. # history of lower back injury due to RTA in past: Back pain needed physiotherapy previously. # known left-sided sciatica # CT and x-ray reveals premature spinal osteoarthritis likely due to weight # Moderate lumbar degenerative disc disease: Conservative management, physical therapy, pain management # GI prophylaxis with PPI # DVT prophylaxis with Lovenox Diet: Cardiac Plan discussed with patient Plan discussed with Plan discussed with: Patient Date of Service: Feb 07, 2025 Billing Provider: KACIE CARSON MD Common Visit Codes: [id number] INP/OBS CARE(HIGH) ANGLE ANDREWS RESIDENT Feb 07, 2025 14:00 KACIE CARSON MD Feb 07, 2025 22:35
--- NOTE | 2025-02-07 22:52 | DVHPN2 ---
Progress Note - Dictate Date Seen: Feb 07, 2025 Medical Necessity Reason Pt with a Central, PICC or Fol: No Subjective Mr. Issa is a 29 years old right-handed gentleman with a history of hypertension, diabetes, dyslipidemia, anxiety, obesity, he came to the [facility] on 02/01/2025 with a chief complaint of numbness weakness in the lower extremities He went through lumbar spine laminectomy on 02/05/2025 I have seen examined the patient, I have talked to his nurse,, he is alert and fully oriented, he reports discomfort in the person bilateral staff, but without back pain, weakness numbness in the lower extremities Otherwise he reports improving, he walked more CBC, 02/01/2025: Okay ESR, 02/01/2025: 4 BMP 02/01/2025: Unremarkable TBI/AST/ALT/AP, 02/01/2025: 0.2/42/44/66 CPK, 02/01/2025: 501, 512, 443 Vitamin B12, 02/01/2025: 334 TSH, 02/22/2020 5:3.09 Ultrasound, 02/01/2025: No gallstones or acute cholecystitis. Hepatic steatosis and hepatomegaly Leg venous Doppler study, 02/01/2025: No right or left femoropopliteal venous thrombosis Chest x-ray, 02/01/2025: No acute disease MRI brain wwo, 02/02/2025: 1. No acute or recent infarct. 2. No enhancing intracranial lesion MRI C-spine, 02/02/2025: 1. No significant MR abnormality of the cervical cord. No significant cervical disc herniation or spinal canal or foraminal narrowing. 2. Prominent right lateral T1 and T2 uncovertebral spurring and/or disc extrusion extending into bilateral inferior foramina contributing to severe right T1-2, T2-T3 foraminal narrowing MRI T-spine, 02/02/2025: 1. Question abnormal cord signal which is indeterminate for cord edema versus demyelination at T10-1. 2. Appearance of severe spinal canal narrowing with possible cord impingement at T9-10 and T10-1 3. Multilevel right lateral recess to foraminal disc extrusions with effacement of the right lateral recesses and associated severe foraminal narrowing at T9-10 and T10-11. 4. Superimposed left-sided lateral recess to foraminal disc protrusion/ extrusion at T4-5, T5-6, T8-9, T9-10. vital signs Vital Sign Date Time Temp Pulse Resp B/P (MAP) Pulse Ox O2 Delivery O2 Flow Rate FiO2 02/07/25 21:00 99.2 105 20 153/86 (108) 96 99.2 02/07/25 08:00 Room Air* 0 21 Total Intake and Output 02/06/25 02/06/25 02/07/25 15:00 23:00 07:00 Intake Total 720 ml 1130 ml 1050 ml Output Total 2275 ml 1100 ml Balance 720 ml -1145 ml -50 ml medications Current Medications Medications Dose Ordered Sig/Jennifer Route Start Time Stop Time Status Last Admin Dose Admin Pantoprazole Sodium 40 mg DAILY IV 02/02/25 10:00 02/07/25 10:00 40 MG Enoxaparin Sodium 60 mg DAILY SC 02/02/25 10:00 02/07/25 10:00 60 MG Citalopram Hydrobromide 40 mg DAILY PO 02/02/25 10:00 02/07/25 10:00 40 MG Dextrose/Sodium Chloride 1,000 ml @ 100 mls/hr Q10H IV 02/05/25 12:00 02/07/25 13:17 100 MLS/HR Ondansetron HCl 4 mg Q4HP PRN IV 02/05/25 12:00 Acetaminophen 650 mg Q6HP PRN PO 02/05/25 12:00 Acetaminophen/ Hydrocodone Bitart 1 tab Q6HP PRN PO 02/05/25 12:00 02/07/25 10:50 1 TAB Morphine Sulfate 1 mg Q4HP PRN IV 02/05/25 12:00 Cyclobenzaprine HCl 10 mg TID PO 02/05/25 14:00 02/07/25 22:04 10 MG Docusate Sodium 100 mg BID PO 02/05/25 22:00 02/07/25 22:03 100 MG Nitroglycerin 0.4 mg Q5MINP PRN SL 02/05/25 12:00 Morphine Sulfate 2 mg Q30M PRN IV 02/05/25 12:00 objective General: the patient is well developed and nourished. No acute distress. MENTAL STATUS: Awake and alert. Oriented to person, place, time and general circumstances. Able to give personal history SPEECH, LANGUAGE, HIGHER CORTICAL FUNCTION: no aphasia or dysathria. CRANIAL NERVES: Pupils are equal, round and reactive. EOMs full and conjugate. No nystagmus. Facial sensation intact in all three divisions bilaterally. Mandibular strength intact. Facial muscles symmetrical and strength intact. Tongue midline. No fasciculations or atrophy. SENSATION: No definite sensory level MOTOR: Normal tone in the upper and lower extremity. Normal muscle bulk. No fasciculations. No abnormal movements or posturing. Muscle strength of the major groups in the upper extremities is 5/5. Muscle strength of the major groups in the lower extremities is 4/5, weaker in the bilateral pelvic girdle muscles. REFLEXES: Deep tendon reflexes are symmetrical. No pathological reflexes. CEREBELLAR/COORDINATION: Finger to nose is normal bilaterally. GAIT/STATION: deferred laboratory and microbiology Laboratory Tests 02/07/25 05:04 Test 02/07/25 05:04 Range/Units Serum Glucose 106 74-106 mg/dL Problem List Paresthesia and weakness in the lower extremities, etiology unclear Transverse myelitis Multiple sclerosis Polymyositis, less likely Lumbar spine stenosis, status post laminectomy Assessment/Plan Monitoring Supportive treatment DVT prophylaxis GI prophylaxis Up to chair Physical therapy More recommendation per clinical course This medical document was created using an electronic medical record system with [employer] dictation system. Although this document has been carefully reviewed, there may still be some phonetic and typographical errors. These areas are purely typographical due to imperfections of the software programs, and do not reflect any compromise in the patient's medical care. Prognosis poor Dietary Evaluation Review Comments: Monitor PO intake to meet at least 75% of his needs Weight management but avoid catabolism Expected Outcomes/Goals: gradual wt loss Plan discussed with: Patient, Other MADDIE AUSTIN MD Feb 07, 2025 22:52
--- NOTE | 2025-02-07 23:32 | DVHPN2 ---
Progress Note - Surgical Date Seen: Feb 07, 2025 Post op day Post op day: 2 Subjective Patient reports: Feels better Review of Systems: HEENT:Normal, CVS:Normal, RESPIRATORY:Normal, GI:Normal, :Normal, NEURO:Normal Objective Vital signs Vital Sign Date Time Temp Pulse Resp B/P (MAP) Pulse Ox O2 Delivery O2 Flow Rate FiO2 02/07/25 21:00 99.2 105 20 153/86 (108) 96 99.2 02/07/25 08:00 Room Air* 0 21 Total Intake and Output 02/06/25 02/06/25 02/07/25 15:00 23:00 07:00 Intake Total 720 ml 1130 ml 1050 ml Output Total 2275 ml 1100 ml Balance 720 ml -1145 ml -50 ml Medications Current Medications Medications Dose Ordered Sig/Jennifer Route Start Time Stop Time Status Last Admin Dose Admin Pantoprazole Sodium 40 mg DAILY IV 02/02/25 10:00 02/07/25 10:00 40 MG Enoxaparin Sodium 60 mg DAILY SC 02/02/25 10:00 02/07/25 10:00 60 MG Citalopram Hydrobromide 40 mg DAILY PO 02/02/25 10:00 02/07/25 10:00 40 MG Dextrose/Sodium Chloride 1,000 ml @ 100 mls/hr Q10H IV 02/05/25 12:00 02/07/25 13:17 100 MLS/HR Ondansetron HCl 4 mg Q4HP PRN IV 02/05/25 12:00 Acetaminophen 650 mg Q6HP PRN PO 02/05/25 12:00 Acetaminophen/ Hydrocodone Bitart 1 tab Q6HP PRN PO 02/05/25 12:00 02/07/25 10:50 1 TAB Morphine Sulfate 1 mg Q4HP PRN IV 02/05/25 12:00 Cyclobenzaprine HCl 10 mg TID PO 02/05/25 14:00 02/07/25 22:04 10 MG Docusate Sodium 100 mg BID PO 02/05/25 22:00 02/07/25 22:03 100 MG Nitroglycerin 0.4 mg Q5MINP PRN SL 02/05/25 12:00 Morphine Sulfate 2 mg Q30M PRN IV 02/05/25 12:00 Laboratory Laboratory Tests 02/07/25 05:04 Test 02/07/25 05:04 Range/Units Serum Glucose 106 74-106 mg/dL Microbiology Date/Time Source Procedure Growth Status 02/03/25 08:54 Stool Stool Culture - Final Complete 02/03/25 08:54 Stool Shiga Toxin I & II - Final Complete Examination: GENERAL:Normal, HEENT:Normal, NECK:Normal, LUNGS:Normal, CVS:Normal, ABDOMEN:Normal, MSK:Normal, SKIN:Normal, NEURO:Normal Problem List/Assessment/Plan Assessment and Plan Post operative day 2 despite the order being two days old, the chambers not d/c ed I placed a second order to d/c chambers. It is imperative to d/c chambers to prevent risk of UTI hemovac drains removed pt. clear for d/c from hospital from spine standpoint with request for 2 week follow up My Orders My Orders Orders - MARILYN CALLOWAY MD Procedure Category Date Status Time D/C Chambers KATHIA 02/07/25 Verified 23:29 Plan discussed with Plan discussed with: Patient Visit Coding Surgery Date of Service if different f: Feb 07, 2025 Billing Provider: MARILYN CALLOWAY MD Surgery Visit Codes: NOT BILLABLE MARILYN CALLOWAY MD Feb 07, 2025 23:32
[2025-02-08] VITALS (7 sets, daily range): BP systolic 98–141; BP diastolic 63–91; PULSE 88–110; RESP 18–20; TEMP 97.5–99.4; O2SAT 98–100
[2025-02-08 07:19] LABS: Hematocrit 41.1 % (41.0-53.0); Hemoglobin 14.0 g/dL (13.5-17.5); Mean Corpuscular Hemoglobin 30.0 pg (28.0-32.0); Mean Corpuscular Volume 88.0 fL (80.0-100.0); Nucleated Red Blood Cells % 0.2 %
[2025-02-08 07:26] LABS: Chloride 103 mmol/L (98-107); Potassium 3.7 mmol/L (3.5-5.1); Sodium 140 mmol/L (136-145)
[2025-02-08 07:27] LABS: Anion Gap 12 (5-15); Calcium 8.9 mg/dL (8.7-10.4); Carbon Dioxide 25 mmol/L (20-31)
[2025-02-08 07:32] LABS: BUN/Creatinine Ratio 15.7 (10.0-20.0); Blood Urea Nitrogen 11 mg/dL (9-23); Glucose 84 mg/dL (74-106)
--- NOTE | 2025-02-08 13:10 | DVHPN2 ---
Progress Note - Dictate Date Seen: Feb 08, 2025 Medical Necessity Reason Pt with a Central, PICC or Fol: No Subjective PT WITH SPINAL STENOSIS LE WEAKNESS OBESITY MAY REQUIRE SPINAL DECOMPRESSION vital signs Vital Sign Date Time Temp Pulse Resp B/P (MAP) Pulse Ox O2 Delivery O2 Flow Rate FiO2 02/08/25 12:41 97.7 102 18 112/71 (85) 98 97.7 02/08/25 08:00 Room Air* 0 21 Total Intake and Output 02/07/25 02/07/25 02/08/25 15:00 23:00 07:00 Intake Total 1050 ml 950 ml 400 ml Output Total 1100 ml 300 ml Balance 1050 ml -150 ml 100 ml medications Current Medications Medications Dose Ordered Sig/Jennifer Route Start Time Stop Time Status Last Admin Dose Admin Pantoprazole Sodium 40 mg DAILY IV 02/02/25 10:00 02/08/25 09:54 40 MG Enoxaparin Sodium 60 mg DAILY SC 02/02/25 10:00 02/08/25 09:54 60 MG Citalopram Hydrobromide 40 mg DAILY PO 02/02/25 10:00 02/08/25 09:54 40 MG Dextrose/Sodium Chloride 1,000 ml @ 100 mls/hr Q10H IV 02/05/25 12:00 02/08/25 09:54 100 MLS/HR Ondansetron HCl 4 mg Q4HP PRN IV 02/05/25 12:00 Acetaminophen 650 mg Q6HP PRN PO 02/05/25 12:00 Acetaminophen/ Hydrocodone Bitart 1 tab Q6HP PRN PO 02/05/25 12:00 02/08/25 09:54 1 TAB Morphine Sulfate 1 mg Q4HP PRN IV 02/05/25 12:00 Cyclobenzaprine HCl 10 mg TID PO 02/05/25 14:00 02/08/25 06:02 10 MG Docusate Sodium 100 mg BID PO 02/05/25 22:00 02/08/25 09:54 100 MG Nitroglycerin 0.4 mg Q5MINP PRN SL 02/05/25 12:00 laboratory and microbiology Laboratory Tests 02/08/25 00:55 Test 02/08/25 00:55 Range/Units Serum Glucose 84 74-106 mg/dL Problem List SPINAL STENOSIS LE WEAKNESS OBESITY MAY REQUIRE SPINAL DECOMPRESSION Assessment/Plan MAY PROCEED WITH SURGERY ECHO EF >55% ASA II DVT PROPHYLAXIS HERNIATED LUMBER DISK S/P LAMINECTOMY REVIEWED LABS: HGB, MCV, AND MCH ARE NORMAL Dietary Evaluation Review Comments: Monitor PO intake to meet at least 75% of his needs Weight management but avoid catabolism Expected Outcomes/Goals: gradual wt loss Plan discussed with: Patient BENNETT GUEVARA MD Feb 08, 2025 13:10
--- NOTE | 2025-02-08 15:39 | DVHPNRES ---
Progress Note Date Seen: Feb 08, 2025 Resident Creating Document: ANGLE ANDREWS RESIDENT Medical Necessity Reason Pt with a Central, PICC or Fol: No Subjective Review of Systems Patient seen at bedside. Status post spine surgery. Discontinued foleys. Reinserted foleys due to A/C urinary retention. Mr. Issa, A 29-year-old male with a history of diabetes mellitus, dyslipidemia, hypertension, anxiety, and obesity presents with bilateral lower limb weakness and numbness persisting for two weeks. 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 He has recently abstained from alcohol and feels dehydrated but denies fever, shortness of breath, or other systemic symptoms. His review of systems is largely unremarkable except for the noted neurological complaints. He is currently taking metformin, Ozempic, losartan, atenolol, atorvastatin, and citalopram, with no known allergies and no relevant surgical or family history. He denies smoking, alcohol, and illicit drug use. Objective vital signs Vital Sign Date Time Temp Pulse Resp B/P (MAP) Pulse Ox O2 Delivery O2 Flow Rate FiO2 02/08/25 12:41 97.7 102 18 112/71 (85) 98 97.7 02/08/25 08:00 Room Air* 0 21 Total Intake and Output 02/07/25 02/07/25 02/08/25 15:00 23:00 07:00 Intake Total 1050 ml 950 ml 400 ml Output Total 1100 ml 300 ml Balance 1050 ml -150 ml 100 ml medications Current Medications Medications Dose Ordered Sig/Jennifer Route Start Time Stop Time Status Last Admin Dose Admin Pantoprazole Sodium 40 mg DAILY IV 02/02/25 10:00 02/08/25 09:54 40 MG Enoxaparin Sodium 60 mg DAILY SC 02/02/25 10:00 02/08/25 09:54 60 MG Citalopram Hydrobromide 40 mg DAILY PO 02/02/25 10:00 02/08/25 09:54 40 MG Dextrose/Sodium Chloride 1,000 ml @ 100 mls/hr Q10H IV 02/05/25 12:00 02/08/25 09:54 100 MLS/HR Ondansetron HCl 4 mg Q4HP PRN IV 02/05/25 12:00 Acetaminophen 650 mg Q6HP PRN PO 02/05/25 12:00 Acetaminophen/ Hydrocodone Bitart 1 tab Q6HP PRN PO 02/05/25 12:00 02/08/25 09:54 1 TAB Morphine Sulfate 1 mg Q4HP PRN IV 02/05/25 12:00 Cyclobenzaprine HCl 10 mg TID PO 02/05/25 14:00 02/08/25 06:02 10 MG Docusate Sodium 100 mg BID PO 02/05/25 22:00 02/08/25 09:54 100 MG Nitroglycerin 0.4 mg Q5MINP PRN SL 02/05/25 12:00 Examination General Appearance: Alert, Oriented X3, Cooperative, No acute distress HEENT: Atraumatic, PERRLA, EOMI, Mucous membrane moist/pink Respiratory: Clear to auscultation, Normal air movement Cardiovascular: Regular rate, Normal S1, Normal S2, No murmurs, no chest wall tenderness Abdominal: Normal bowel sounds, Soft, No tenderness, No hepatospenomegaly, No masses Extremities: No clubbing, No cyanosis, No edema, Normal pulses, No tenderness/swelling Skin: No rashes, No breakdown, No significant lesion Neuro: 1/5 strength in bilateral lower limbs, no sensation in bilateral lower limbs Psych/Mental Status: Mental status NL, Mood NL laboratory and microbiology Laboratory Tests 02/08/25 00:55 Test 02/08/25 00:55 Range/Units Serum Glucose 84 74-106 mg/dL Microbiology Date/Time Source Procedure Growth Status 02/03/25 08:54 Stool Stool Culture - Final Complete 02/03/25 08:54 Stool Shiga Toxin I & II - Final Complete Problem List/Assessment/Plan Problem List/Assessment/Plan Assessment and plan # Bilateral lower extremity paresthesias and weakness with unclear etiology; ? transverse myelitis Lumbar degenerative disc disease with a large paracentral disc protrusion L4-5 Severe spinal stenosis at L5 Severe neural foraminal stenosis at multiple levels: s/p spine Sx # Progressive b/l lower limb weakeness with paresthesia : Differentials include transverse myelitis, Guillain-[place] syndrome, central canal stenosis, spinal injury, autoimmune disease and subacute combined degeneration: Lumbar MRI, Neurology input, Lumbar puncture depending on Neurology, PT, fall precautions. # Dorota Statin myopathy: elevated CK: On home at low-dose statin 10 trend Ck , IV fluid to continue, BMP daily, correct electrolytes, check lipid panel, check further need of statin. # elevated CK, likely exertional: Differentials include myositis, myopathy: Check UDS, highly likely due to the statin # mild Transaminitis, likely due to NAFLD: Trend liver functions, lifestyle modification, weight loss # Obesity grade 3+, BMI 55.4 kg/m2: on Ozempic, continue weight loss and weight management, lifestyle modifications continue # recurrent chronic diarrhea: Could be due to metformin use, can hold, rule out B12 and electrolyte disturbances. Given psychiatric history, irritable bowel syndrome is differential, diagnosis of exclusion. # history of Prediabetes, HbA1c 5.1, likely improve # history of Dyslipidemia: Follow lipid panels # history of Essential hypertension: Home antihypertensives reviewed lisinopril and atenolol, Continue antihypertensives as needed, Target blood pressure in- hospital below 140/90, salt restricted DASH/cardiac diet. # generalized anxiety disorder/major depressive disorder: Continue home medications, on citalopram 40 mg daily. # history of lower back injury due to RTA in past: Back pain needed physiotherapy previously. # known left-sided sciatica # CT and x-ray reveals premature spinal osteoarthritis likely due to weight # Moderate lumbar degenerative disc disease: Conservative management, physical therapy, pain management # GI prophylaxis with PPI # DVT prophylaxis with Lovenox Diet: Cardiac Plan discussed with patient Plan discussed with Plan discussed with: Patient My Orders My Orders Orders - ANGLE ANDREWS RESIDENT Procedure Category Date Status Time * Urology Consult CONS 02/08/25 Transmitted 12:01 Complete Blood Count LAB 02/09/25 Verified 04:00 Comprehensive LAB 02/09/25 Verified Metabolic Panel 04:00 Dietary Evaluation Review Comments: Monitor PO intake to meet at least 75% of his needs Weight management but avoid catabolism Expected Outcomes/Goals: gradual wt loss Date of Service: Feb 08, 2025 Billing Provider: KACIE CARSON MD Common Visit Codes: [id number] INP/OBS CARE(HIGH) ANGLE ANDREWS Feb 08, 2025 15:39 KACIE CARSON MD Feb 09, 2025 00:03
--- NOTE | 2025-02-08 16:01 | DVHINCON2 ---
Date of service: Feb 08, 2025 Referring Physician Hospitalist Reason for Consultation Urinary retention History of Present Illness 29-year-old male status post spinal surgery postop day 3.. We are consulted for urinary retention. On postop day 2., patient was unable to urinate and straight cath returned 1300 cc of urine volume. Catheter was then placed. It was removed this morning only to find that he still could not urinate and the catheter was replaced. Procedure performed includes lumbar 3-5. 1. Massive lumbar 4/5 herniated disc causing severe canal compromise and incapacitating radiculopathy and progressive neurologic deficit 2. lumbar spinal stenosis at L3/4 and L4/5 causing severe neurogenic claudication Past Medical History Obesity Herniated discs of lumbar region, status post spinal surgery Allergies: Coded Allergies: NO KNOWN ALLERGIES (Unverified , 02/27/17) Home Meds Active Scripts Ibuprofen Micronized (MOTRIN TABLET) 600 Mg Tb, 800 MG PO TID PRN for 10 Days, #30 TAB *Black box warning-NSAIDS can increase risk of [place] & hypertension, GI irritation, ulceration, bleed, perferation. Do not use post cardiac surgery. Use short duration/lowest effective dose. Prov:RAHUL GARZA MD 10/31/23 Acetaminophen (Acetaminophen) 500 Mg Tab, 500 MG PO QIDPRN PRN for 10 Days, #40 TAB Prov:JESUS JOY DO 09/12/23 Reported Medications Semaglutide (Ozempic) 2 Mg/3 Ml Inj, 2 MG SC, INJ 02/01/25 Atorvastatin Calcium (ATORVASTATIN CALCIUM) 10 Mg Tab, 1 TAB PO DAILY, #30 TAB 5 Refills 02/01/25 Review of Systems Patient denies prior history of urinary difficulties. Vital Signs Vital Signs Date Time Temp Pulse Resp B/P (MAP) Pulse Ox O2 Delivery O2 Flow Rate FiO2 02/08/25 12:41 97.7 102 18 112/71 (85) 98 97.7 02/08/25 08:00 Room Air* 0 21 Physical Exam Rubi catheter in place. Patient is morbidly obese Labs/Diagnostic Data Labs Test 02/08/25 00:55 02/07/25 05:04 02/02/25 06:34 02/01/25 16:50 Range/Units White Blood Count 12.7 H 4.4-10.8 10^3/uL Red Blood Count 4.67 4.5-5.90 10^6/uL Hemoglobin 14.0 13.5-17.5 g/dL Hematocrit 41.1 41.0-53.0 % Mean Corpuscular Volume 88.0 80.0-100.0 fL Mean Corpuscular Hemoglobin 30.0 28.0-32.0 pg Mean Corpuscular Hemoglobin Concent 34.1 32.0-36.0 g/dL Red Cell Distribution Width 12.8 11.8-14.3 % Platelet Count 252 140-450 10^3/uL Mean Platelet Volume 9.2 6.9-10.8 fL Neutrophils (%) (Auto) 70.8 37.0-80.0 % Lymphocytes (%) (Auto) 19.4 10.0-50.0 % Monocytes (%) (Auto) 9.7 0.0-12.0 % Eosinophils (%) (Auto) 0.1 0.0-7.0 % Basophils (%) (Auto) 0.0 0.0-2.0 % Neutrophils # (Auto) 9.0 H 1.6-8.6 10 ^3/uL Lymphocytes # (Auto) 2.5 0.4-5.4 10 ^3/uL Monocytes # (Auto) 1.2 0-1.3 10 ^3/uL Eosinophils # (Auto) 0 0-0.8 10 ^3/uL Basophils # (Auto) 0 0-0.2 10 ^3/uL Nucleated Red Blood Cells 0.2 % Sodium Level 140 136-145 mmol/L Potassium Level 3.7 3.5-5.1 mmol/L Chloride Level 103 98-107 mmol/L Carbon Dioxide Level 25 20-31 mmol/L Anion Gap 12 5-15 Blood Urea Nitrogen 11 9-23 mg/dL Creatinine 0.70 0.700-1.30 mg/dL Glomerular Filtration Rate Calc 130 >90 mL/min BUN/Creatinine Ratio 15.7 10.0-20.0 Serum Glucose 84 74-106 mg/dL Calcium Level 8.9 8.7-10.4 mg/dL Total Bilirubin 0.9 0.2-1.0 mg/dL Aspartate Amino Transferase (AST) 29 13-40 U/L Alanine Aminotransferase (ALT) 27 7-40 U/L Alkaline Phosphatase 51 46-116 U/L Total Protein 6.8 5.7-8.2 g/dL Albumin 4.1 3.2-4.8 g/dL Creatine Kinase 315 H 46-171 U/L Influenza Type A Antigen Negative Negative Influenza Type B Antigen Negative Negative SARS-CoV-2 Antigen (Rapid) Negative NEGATIVE Test 02/01/25 09:49 02/01/25 06:16 02/01/25 03:22 02/01/25 01:40 Range/Units Lactic Acid Level 1.2 0.4-2.0 mmol/L Erythrocyte Sedimentation Rate 4 0-20 mm/hr Hemoglobin A1c 5.1 <5.7 % A1C Urine Color Yellow Yellow Urine Clarity Clear Clear Urine pH 6.5 5.0-9.0 Urine Specific [place] 1.026 1.001-1.035 Urine Protein Negative Negative Urine Ketones Negative Negative Urine Blood Negative Negative /uL Urine Nitrite Negative Negative Urine Bilirubin Negative Negative Urine Urobilinogen 2 H Negative mg/dL Urine Leukocyte Esterase Negative Negative /uL Urine RBC None seen 0 - 3 /hpf Urine Microscopic WBC < 1 0-3 /HPF Urine Squamous Epithelial Cells None seen <5 /hpf Urine Bacteria None seen None Seen /hpf Urine Mucus Few None Seen Urine Glucose Normal Normal mg/dL Urine Opiates Screen Neg NEGATIVE Urine Fentanyl Screen Neg NEGATIVE Urine Barbiturates Screen Neg NEGATIVE Urine Phencyclidine Screen Neg NEGATIVE Urine Amphetamines Screen Neg NEGATIVE Urine Benzodiazepines Screen Neg NEGATIVE Urine Cocaine Screen Neg NEGATIVE Urine Cannabinoids Screen Neg NEGATIVE Prothrombin Time 10.7 9.3-11.8 sec Prothrombin Time INR 1.01 0.9-1.15 Activated Partial Thromboplast Time 30.3 24.5-34.5 SEC Magnesium Level 2.1 1.6-2.6 mg/dL Direct Bilirubin 0.2 <0.3 mg/dL C-Reactive Protein High Sensitivity 0.36 <1.0 mg/dL Vitamin B12 Level 334 211-911 pg/mL Thyroid Stimulating Hormone (TSH) 3.09 0.55-4.78 uIU/mL Microbiology Date/Time Source Procedure Growth Status 02/03/25 08:54 Stool Stool Culture - Final Complete 02/03/25 08:54 Stool Shiga Toxin I & II - Final Complete Assessment Urinary retention Temporary neurogenic voiding dysfunction Obesity Plan/Recommendation Maintain Rubi to gravity x 2 weeks Discharge with Rubi catheter to leg bag Follow up in two weeks for voiding trial, urodynamics and possible cystoscopy Plan discussed with: Patient, Other RAHUL STOCK MD Feb 08, 2025 16:01
[2025-02-08 16:53] LABS: Urine Amorphous Crystal FEW /hpf (None Seen); Urine Budding Yeast OCCASIONAL /hpf (None Seen); Urine Protein, UAD TRACE (Negative)
--- NOTE | 2025-02-08 21:31 | DVHPN2 ---
Progress Note - Dictate Date Seen: Feb 08, 2025 Medical Necessity Reason Pt with a Central, PICC or Fol: No Subjective Mr. Issa is a 29 years old right-handed gentleman with a history of hypertension, diabetes, dyslipidemia, anxiety, obesity, he came to the [facility] on 02/01[facility]2025 with a chief complaint of numbness weakness in the lower extremities He went through lumbar spine laminectomy on 02/05/2025 I have seen examined the patient, I have talked to his nurse, he is alert and fully oriented, the discomfort in the bilateral stomach is much better, he only has some pressure feeling now. He walked today with physical therapist, no new complaints CBC, 02/01/2025: Okay ESR, 02/01/2025: 4 BMP 02/01/2025: Unremarkable TBI/AST/ALT/AP, 02/01/2025: 0.2/42/44/66 CPK, 02/01/2025: 501, 512, 443 Vitamin B12, 02/01/2025: 334 TSH, 02/22/2020 5:3.09 Ultrasound, 02/01/2025: No gallstones or acute cholecystitis. Hepatic steatosis and hepatomegaly Leg venous Doppler study, 02/01/2025: No right or left femoropopliteal venous thrombosis Chest x-ray, 02/01/2025: No acute disease MRI brain wwo, 02/02/2025: 1. No acute or recent infarct. 2. No enhancing intracranial lesion MRI C-spine, 02/02/2025: 1. No significant MR abnormality of the cervical cord. No significant cervical disc herniation or spinal canal or foraminal narrowing. 2. Prominent right lateral T1 and T2 uncovertebral spurring and/or disc extrusion extending into bilateral inferior foramina contributing to severe right T1-2, T2-T3 foraminal narrowing MRI T-spine, 02/02/2025: 1. Question abnormal cord signal which is indeterminate for cord edema versus demyelination at T10-1. 2. Appearance of severe spinal canal narrowing with possible cord impingement at T9-10 and T10-1 3. Multilevel right lateral recess to foraminal disc extrusions with effacement of the right lateral recesses and associated severe foraminal narrowing at T9-10 and T10-11. 4. Superimposed left-sided lateral recess to foraminal disc protrusion/ extrusion at T4-5, T5-6, T8-9, T9-10. vital signs Vital Sign Date Time Temp Pulse Resp B/P (MAP) Pulse Ox O2 Delivery O2 Flow Rate FiO2 02/08/25 20:00 Room Air* 0 21 02/08/25 16:56 97.5 98 18 118/64 (82) 98 97.5 Total Intake and Output 02/07/25 02/07/25 02/08/25 15:00 23:00 07:00 Intake Total 1050 ml 950 ml 400 ml Output Total 1100 ml 300 ml Balance 1050 ml -150 ml 100 ml medications Current Medications Medications Dose Ordered Sig/Jennifer Route Start Time Stop Time Status Last Admin Dose Admin Pantoprazole Sodium 40 mg DAILY IV 02/02/25 10:00 02/08/25 09:54 40 MG Enoxaparin Sodium 60 mg DAILY SC 02/02/25 10:00 02/08/25 09:54 60 MG Citalopram Hydrobromide 40 mg DAILY PO 02/02/25 10:00 02/08/25 09:54 40 MG Dextrose/Sodium Chloride 1,000 ml @ 100 mls/hr Q10H IV 02/05/25 12:00 02/08/25 20:23 100 MLS/HR Ondansetron HCl 4 mg Q4HP PRN IV 02/05/25 12:00 Acetaminophen 650 mg Q6HP PRN PO 02/05/25 12:00 Acetaminophen/ Hydrocodone Bitart 1 tab Q6HP PRN PO 02/05/25 12:00 02/08/25 16:09 1 TAB Morphine Sulfate 1 mg Q4HP PRN IV 02/05/25 12:00 Cyclobenzaprine HCl 10 mg TID PO 02/05/25 14:00 02/08/25 14:00 10 MG Docusate Sodium 100 mg BID PO 02/05/25 22:00 02/08/25 09:54 100 MG Nitroglycerin 0.4 mg Q5MINP PRN SL 02/05/25 12:00 objective General: the patient is well developed and nourished. No acute distress. MENTAL STATUS: Subjective SPEECH, LANGUAGE, HIGHER CORTICAL FUNCTION: no aphasia or dysathria. CRANIAL NERVES: Pupils are equal, round and reactive. EOMs full and conjugate. No nystagmus. Facial sensation intact in all three divisions bilaterally. Mandibular strength intact. Facial muscles symmetrical and strength intact. Tongue midline. No fasciculations or atrophy. SENSATION: No definite sensory level MOTOR: Normal tone in the upper and lower extremity. Normal muscle bulk. No fasciculations. No abnormal movements or posturing. Muscle strength of the major groups in the upper extremities is 5/5. Muscle strength of the major groups in the lower extremities is 4/5 REFLEXES: Deep tendon reflexes are symmetrical. No pathological reflexes. CEREBELLAR/COORDINATION: Finger to nose is normal bilaterally. GAIT/STATION: deferred laboratory and microbiology Laboratory Tests 02/08/25 00:55 Test 02/08/25 00:55 Range/Units Serum Glucose 84 74-106 mg/dL Problem List Paresthesia and weakness in the lower extremities, etiology unclear Transverse myelitis Multiple sclerosis Polymyositis, less likely Lumbar spine stenosis, status post laminectomy Assessment/Plan Monitoring Supportive treatment DVT prophylaxis GI prophylaxis Up to chair Physical therapy More recommendation per clinical course This medical document was created using an electronic medical record system with [employer] dictation system. Although this document has been carefully reviewed, there may still be some phonetic and typographical errors. These areas are purely typographical due to imperfections of the software programs, and do not reflect any compromise in the patient's medical care. Prognosis poor Dietary Evaluation Review Comments: Monitor PO intake to meet at least 75% of his needs Weight management but avoid catabolism Expected Outcomes/Goals: gradual wt loss Plan discussed with: Patient, Other MADDIE AUSTIN MD Feb 08, 2025 21:31
[2025-02-09 01:00] VITALS: BP 117/70; PULSE 95; RESP 19; TEMP 98.6; O2SAT 98
[2025-02-09 05:00] VITALS: BP 123/74; PULSE 94; RESP 19; TEMP 98.1; O2SAT 98
[2025-02-09 06:33] LABS: Alanine Aminotransferase 20 U/L (7-40); Albumin 3.9 g/dL (3.2-4.8); Alkaline Phosphatase 57 U/L (46-116); Anion Gap 13 (5-15); BUN/Creatinine Ratio 15.2 (10.0-20.0); Blood Urea Nitrogen 10 mg/dL (9-23); Carbon Dioxide 23 mmol/L (20-31); Chloride 106 mmol/L (98-107); Glucose 82 mg/dL (74-106); Potassium 4.0 mmol/L (3.5-5.1); Sodium 142 mmol/L (136-145); Total Protein 6.6 g/dL (5.7-8.2)
[2025-02-09 06:34] LABS: Bilirubin, Total 0.8 mg/dL (0.2-1.0); Hematocrit 39.2 % (41.0-53.0); Hemoglobin 13.4 g/dL (13.5-17.5); Mean Corpuscular Hemoglobin 30.1 pg (28.0-32.0); Mean Corpuscular Volume 87.9 fL (80.0-100.0); Nucleated Red Blood Cells % 0.1 %
[2025-02-09 06:38] LABS: Calcium 8.5 mg/dL (8.7-10.4)
[2025-02-09 08:00] VITALS: PULSE 103; RESP 18
[2025-02-09 09:00] VITALS: BP 119/64; PULSE 103; RESP 18; TEMP 98.5; O2SAT 98
[2025-02-09 12:36] VITALS: BP 113/73; PULSE 95; RESP 18; TEMP 98.7; O2SAT 95
--- NOTE | 2025-02-09 15:36 | DVHDSRES ---
Discharge Summary Date of Admission Resident Creating Document: ANGLE ANDREWS RESIDENT Feb 01, 2025 at 03:14 Date of Discharge: Feb 09, 2025 Labs/Diagnostic Data: Laboratory Results Test 02/09/25 05:02 02/08/25 15:49 02/02/25 06:34 02/01/25 16:50 White Blood Count 11.4 10^3/uL (4.4-10.8) Red Blood Count 4.46 10^6/uL (4.5-5.90) Hemoglobin 13.4 g/dL (13.5-17.5) Hematocrit 39.2 % (41.0-53.0) Mean Corpuscular Volume 87.9 fL (80.0-100.0) Mean Corpuscular Hemoglobin 30.1 pg (28.0-32.0) Mean Corpuscular Hemoglobin Concent 34.2 g/dL (32.0-36.0) Red Cell Distribution Width 12.7 % (11.8-14.3) Platelet Count 239 10^3/uL (140-450) Mean Platelet Volume 9.8 fL (6.9-10.8) Neutrophils (%) (Auto) 67.5 % (37.0-80.0) Lymphocytes (%) (Auto) 21.6 % (10.0-50.0) Monocytes (%) (Auto) 10.7 % (0.0-12.0) Eosinophils (%) (Auto) 0.1 % (0.0-7.0) Basophils (%) (Auto) 0.1 % (0.0-2.0) Neutrophils # (Auto) 7.7 10 ^3/uL (1.6-8.6) Lymphocytes # (Auto) 2.5 10 ^3/uL (0.4-5.4) Monocytes # (Auto) 1.2 10 ^3/uL (0-1.3) Eosinophils # (Auto) 0 10 ^3/uL (0-0.8) Basophils # (Auto) 0 10 ^3/uL (0-0.2) Nucleated Red Blood Cells 0.1 % Sodium Level 142 mmol/L (136-145) Potassium Level 4.0 mmol/L (3.5-5.1) Chloride Level 106 mmol/L (98-107) Carbon Dioxide Level 23 mmol/L (20-31) Anion Gap 13 (5-15) Blood Urea Nitrogen 10 mg/dL (9-23) Creatinine 0.66 mg/dL (0.700-1.30) Glomerular Filtration Rate Calc 132 mL/min (>90) BUN/Creatinine Ratio 15.2 (10.0-20.0) Serum Glucose 82 mg/dL (74-106) Calcium Level 8.5 mg/dL (8.7-10.4) Total Bilirubin 0.8 mg/dL (0.2-1.0) Aspartate Amino Transferase (AST) 24 U/L (13-40) Alanine Aminotransferase (ALT) 20 U/L (7-40) Alkaline Phosphatase 57 U/L (46-116) Total Protein 6.6 g/dL (5.7-8.2) Albumin 3.9 g/dL (3.2-4.8) Urine Color Yellow (Yellow) Urine Clarity Clear (Clear) Urine pH 6.5 (5.0-9.0) Urine Specific [place] 1.024 (1.001-1.035) Urine Protein Trace (Negative) Urine Ketones Negative (Negative) Urine Blood Negative /uL (Negative) Urine Nitrite Negative (Negative) Urine Bilirubin Negative (Negative) Urine Urobilinogen 4 mg/dL (Negative) Urine Leukocyte Esterase Negative /uL (Negative) Urine RBC 3 /hpf (0 - 3) Urine Microscopic WBC 2 /HPF (0-3) Urine Squamous Epithelial Cells None seen /hpf (<5) Urine Amorphous Crystals Few /hpf (None Seen) Urine Bacteria None seen /hpf (None Seen) Urine Mucus Few (None Seen) Urine Yeast (Budding) Occasional /hpf (None Urine Glucose Normal mg/dL (Normal) Creatine Kinase 315 U/L (46-171) Influenza Type A Antigen Negative (Negative) Influenza Type B Antigen Negative (Negative) SARS-CoV-2 Antigen (Rapid) Negative (NEGATIVE) Test 02/01/25 09:49 02/01/25 06:16 02/01/25 03:22 02/01/25 01:40 Lactic Acid Level 1.2 mmol/L (0.4-2.0) Erythrocyte Sedimentation Rate 4 mm/hr (0-20) Hemoglobin A1c 5.1 % A1C (<5.7) Urine Opiates Screen Neg (NEGATIVE) Urine Fentanyl Screen Neg (NEGATIVE) Urine Barbiturates Screen Neg (NEGATIVE) Urine Phencyclidine Screen Neg (NEGATIVE) Urine Amphetamines Screen Neg (NEGATIVE) Urine Benzodiazepines Screen Neg (NEGATIVE) Urine Cocaine Screen Neg (NEGATIVE) Urine Cannabinoids Screen Neg (NEGATIVE) Prothrombin Time 10.7 sec (9.3-11.8) Prothrombin Time INR 1.01 (0.9-1.15) Activated Partial Thromboplast Time 30.3 SEC (24.5-34.5) Magnesium Level 2.1 mg/dL (1.6-2.6) Direct Bilirubin 0.2 mg/dL (<0.3) C-Reactive Protein High Sensitivity 0.36 mg/dL (<1.0) Vitamin B12 Level 334 pg/mL (211-911) Thyroid Stimulating Hormone (TSH) 3.09 uIU/mL (0.55-4.78) Other Laboratory Tests 02/09/25 05:02 Brief Hx & Hospital Course: Mr. Issa, A 29-year-old male with a history of diabetes mellitus, dyslipidemia, hypertension, anxiety, and obesity presents with bilateral lower limb weakness and numbness persisting for two weeks. 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 He has recently abstained from alcohol and feels dehydrated but denies fever, shortness of breath, or other systemic symptoms. His review of systems is largely unremarkable except for the noted neurological complaints. He is currently taking metformin, Ozempic, losartan, atenolol, atorvastatin, and citalopram, with no known allergies and no relevant surgical or family history. He denies smoking, alcohol, and illicit drug use. MRI neck showed prominent right lateral T1 and T2 uncovertebral spurring and/or disc extrusion extending into bilateral inferior foramina contributing to severe right T1-2, T2-T3 foraminal narrowing. MRI thoracic spine showed appearance of severe spinal canal narrowing with possible cord impingement at T9-10 and T10-1, disc protrusion/ extrusion at T4-5, T5-6, T8-9, T9-10. ,severe foraminal narrowing at T9-10 and T10-11. MRI lumbar spine revealed Severe spinal stenosis at L5 ,Severe neural foraminal stenosis at multiple levels, Lumbar degenerative disc disease with a large paracentral disc protrusion L4-5. Liver ultrasound revealed hepatic steatosis and hepatomegaly. Patient underwent spine surgery with laminectomy, foramintomies and facetectomies for lumbar decompression. Condition at Discharge: Fair Final Diagnosis/Problems List # S/P lumbar spine decompression surgery-laminectomy # Lumbar degenerative disc disease with a large paracentral disc protrusion L4-5 # Severe spinal stenosis at L5 # Severe neural foraminal stenosis at multiple levels # [place] Statin myopathy # mild Transaminitis, likely due to NAFLD # Obesity grade 3+ # recurrent chronic diarrhea: Could be due to metformin use # history of Prediabetes # history of Dyslipidemia # history of Essential hypertension # generalized anxiety disorder/major depressive disorder # known left-sided sciatica # spinal osteoarthritis likely due to weight # Moderate lumbar degenerative disc disease # ruled out transverse myelitis Discharge Disposition: Home Discharge Instruct/Medications Scheduled Atorvastatin Calcium (Atorvastatin Calcium), 1 TAB PO DAILY, (Reported) Scheduled PRN Acetaminophen (Acetaminophen), 500 MG PO QIDPRN PRN Ibuprofen Micronized (Motrin Tablet), 800 MG PO TID PRN Miscellaneous Medications Semaglutide (Ozempic), 2 MG SC, (Reported) Discharge Statement: "Patient was advised to return to the ER or call 911 if any headaches, dizziness, shortness of breath, chest pain, abdominal pain, bleeding, fevers, or worsening of medical condition. Patient was counseled about treatment plan, medications, possible side effects, patientverbalized understanding. All questions were answered to the best of my ability. This discharge took greater then 30 minutes in planning, reviewing documentation, counseling the patient, and discussing with other team members." ASSESSMENT ASSESSMENT Assessment same as pre op Date of Service: Feb 09, 2025 Billing Provider: KACIE CARSON MD Common Visit Codes: 88603-CGC/OBS DISCH DAY >30min ANGLE ANDREWS Feb 09, 2025 15:36 KACIE CARSON MD Feb 11, 2025 10:10
[2025-02-09 17:36] VITALS: BP 133/83; PULSE 107; RESP 18; O2SAT 98
--- NOTE | 2025-02-13 22:44 | DVHPN2 ---
Date of Service: Feb 06, 2025 Billing Provider: KACIE CARSON MD Common Visit Codes: [id number] INP/OBS CARE(HIGH) KACIE CARSON MD Feb 13, 2025 22:44
== END 2025-02-09 18:00 | disposition home health service (06) | DRG 304 ==
LOC: ER 00:48 → OVERFLOW 03:14 → TELE-WESTW 16:12 → WEST WING 18:24 → OVERFLOW 02-05 12:00 → WEST WING 02-05 12:55
PROVIDERS: ADMIT Internal Medicine; ATTEND Internal Medicine
PROC: 01NB0ZZ Release Lumbar Nerve, Open Approach (ICD-10-PCS; 2025-02-05)
PROC: 00NY0ZZ Release Lumbar Spinal Cord, Open Approach (ICD-10-PCS; 2025-02-05)
PROC: 4A11X4G Monitoring of Peripheral Nervous Electrical Activity, Intraoperative, External Approach (ICD-10-PCS; 2025-02-05)
PROC: 0SG00AJ Fusion of Lumbar Vertebral Joint with Interbody Fusion Device, Posterior Approach, Anterior Column, Open Approach (ICD-10-PCS; principal; 2025-02-05 10:55)
DX: M48.062 Spinal stenosis, lumbar region with neurogenic claudication (principal); M62.82 Rhabdomyolysis; Z68.43 Body mass index [BMI] 50.0-59.9, adult; M48.05 Spinal stenosis, thoracolumbar region; K76.0 Fatty (change of) liver, not elsewhere classified; I10 Essential (primary) hypertension; F32.9 Major depressive disorder, single episode, unspecified; M51.26 Other intervertebral disc displacement, lumbar region; M51.369 Other intervertebral disc degeneration, lumbar region without mention of lumbar back pain or lower extremity pain; Z20.822 Contact with and (suspected) exposure to COVID-19; E78.5 Hyperlipidemia, unspecified; M54.42 Lumbago with sciatica, left side; E66.813 Obesity, class 3; R74.01 Elevation of levels of liver transaminase levels; F41.1 Generalized anxiety disorder; G35.D Multiple sclerosis, unspecified; M48.07 Spinal stenosis, lumbosacral region; M54.16 Radiculopathy, lumbar region; R33.9 Retention of urine, unspecified; K52.9 Noninfective gastroenteritis and colitis, unspecified; Z83.3 Family history of diabetes mellitus; Z82.49 Family history of ischemic heart disease and other diseases of the circulatory system
CPT/HCPCS: 36415; 70553; 71045; 72100; 72147; 72148; 72157; 76000; 76705; 80048; 80053; 80076; 80307; 81001; 82550; 82607; 83036; 83605; 83735; 84443; 85025; 85610; 85652; 85730; 86141; 86850; 86900; 86901; 87045; 87426; 87427; 87804; 93005; 93306; 93970; 96360; 97110; 97116; 97163; 97530; 99291; A4344; G0378; J0131; J0330; J1100; J1956; J2250; J2405; J2470; J2704